=== PATIENT | male | born 1950 | race Caucasian/White ===

== ENCOUNTER → 2017-05-19 08:07 | Outpatient (CLI) | payer MEDICARE, OTHER, SELFPAY ==
--- NOTE | 2017-05-19 08:12 | US_ITS ---
STUDY: ABDOMINAL ULTRASOUND - RIGHT UPPER QUADRANT REASON FOR VISIT: Male, 66 years old. Elevated liver function tests. TECHNIQUE: Ultrasound evaluation of the right upper quadrant was performed with real-time and static motta-scale imaging. TECHNICAL QUALITY: Adequate. COMPARISON: None. FINDINGS: Liver: The liver measures 17.7 cm. There is normal echogenicity of the liver. The bile ducts are within normal limits. There is hepatic color flow. The direction of portal flow is hepatopetal. There is no demonstrated mass lesion. Gallbladder: The patient is status post cholecystectomy. Common Bile Duct (C.B.D.): The common bile duct measures 2.2 mm. Pancreas: Normal size of the head, body and tail of the pancreas. There is normal echogenicity of the pancreas. There is no demonstrated pancreatic mass or cyst. Right Kidney: Normal size of the right kidney. The right kidney measures 11.1 cm x 5.6 cm x 4.3 cm. Normal renal cortex. The right cortex measures 1.4 cm. There is no demonstrated renal mass or cyst. There is no right hydronephrosis. US/Abdomen Limited IMPRESSION: Normal right upper quadrant ultrasound examination. The patient is status post cholecystectomy. Electronically Signed: Bennett Walton MD at 9:49 EST Tel [phone], Service support ,
== END ==
PROVIDERS: Family Provider Family Medicine; PCP Family Medicine; Visit Provider Family Medicine
DX: R74.0 Nonspecific elevation of levels of transaminase and lactic acid dehydrogenase [LDH] (principal)
CPT/HCPCS: 76705

== ENCOUNTER → 2017-06-15 10:23 | Outpatient (CLI) | payer OTHER, MEDICARE, SELFPAY | PROVIDERS: Family Provider Family Medicine; PCP Family Medicine; Visit Provider Family Medicine | DX: J20.9 Acute bronchitis, unspecified (principal) ==

== ENCOUNTER → 2017-06-15 13:46 | Outpatient (CLI) | payer MEDICARE, OTHER, SELFPAY ==
--- NOTE | 2017-06-15 13:51 | RAD_ITS ---
STUDY: X-RAY CHEST REASON FOR EXAM: Male, 66 years old. Cough TECHNIQUE: Frontal and lateral views of the chest were obtained. COMPARISON: May 29, 2015 FINDINGS: The lungs are adequately aerated. There are no focal airspace opacities. There is no demonstrated pleural abnormality. A calcified granuloma is stable in the right middle lobe. The cardiac silhouette is normal in size. The mediastinum and hilar regions are unremarkable. Normal visualized pulmonary arteries. Normal visualized aortic arch and descending thoracic aorta. There are diffuse degenerative changes of the visualized spine. The visualized ribs, clavicles, and shoulders are unremarkable. Cholecystectomy clips are present. RAD/Chest PA and Lateral IMPRESSION: There is no evidence of focal consolidation or pleural effusion. Electronically Signed: Barbara Holden MD at 17:53 EST Tel Direct: [phone], Service support ,
== END ==
PROVIDERS: Family Provider Family Medicine; PCP Family Medicine; Visit Provider Family Medicine
DX: J20.9 Acute bronchitis, unspecified (principal)
CPT/HCPCS: 71046

== ENCOUNTER → 2017-06-24 11:16 | Outpatient (CLI) | payer MEDICARE, OTHER, SELFPAY ==
[2017-06-24 16:21] LABS: Ferritin 1153 ng/mL (26-388); Iron 81 ug/dL (65-175); Iron Binding Capacity,Total 250 ug/dL (250-450); PERCENT IRON SATURATION 32.4 % (15.0-55.0)
[2017-06-25 12:24] LABS: AST(SGOT) 22 U/L (15-37); Alanine Aminotransfer ALT/SGPT 47 U/L (16-61); Albumin, Serum 4.1 g/dL (3.2-5.0); Alkaline Phosphatase 108 U/L (45-117); Bilirubin, Direct 0.12 mg/dL (0.00-0.30); Globulin 3.4 g/dL (2.2-4.2); Protein, Total 7.5 g/dL (6.4-8.2)
== END ==
PROVIDERS: Family Provider Family Medicine; PCP Family Medicine; Visit Provider Family Medicine
DX: R79.89 Other specified abnormal findings of blood chemistry (principal); E83.19 Other disorders of iron metabolism
CPT/HCPCS: 36415; 80076; 82728; 83540; 83550; 86704; 86705; 86706; 86708; 86709; 86803; 87340

== ENCOUNTER → 2017-08-05 06:51 | Outpatient (CLI) | payer MEDICARE, OTHER, SELFPAY ==
[2017-08-05 08:11] LABS: AST(SGOT) 22 U/L (15-37); Alanine Aminotransfer ALT/SGPT 28 U/L (16-61); Alkaline Phosphatase 99 U/L (45-117); Cholesterol 239 mg/dL (200); Globulin 3.4 g/dL (2.2-4.2); High Density Lipoprotein 42 mg/dL; Protein, Total 7.4 g/dL (6.4-8.2); Triglycerides 127 mg/dL; Very Low Density Lipoprotein 25 mg/dL (5-40)
== END ==
PROVIDERS: Family Provider Family Medicine; PCP Family Medicine; Visit Provider Nurse Practitioner Family
DX: I25.10 Atherosclerotic heart disease of native coronary artery without angina pectoris (principal); E78.5 Hyperlipidemia, unspecified
CPT/HCPCS: 36415; 80061; 80076

== ENCOUNTER → 2018-04-21 07:47 | Outpatient (CLI) | payer MEDICARE, OTHER, SELFPAY ==
[2017-12-06 09:46] VITALS: BMI 27.8
[2018-04-21 08:58] LABS: AST(SGOT) 27 U/L (15-37); Alanine Aminotransfer ALT/SGPT 69 U/L (16-61); Albumin, Serum 3.9 g/dL (3.2-5.0); Alkaline Phosphatase 99 U/L (45-117); Bilirubin, Direct 0.13 mg/dL (0.00-0.30); Cholesterol 252 mg/dL (200); Globulin 3.3 g/dL (2.2-4.2); High Density Lipoprotein 41 mg/dL; Protein, Total 7.2 g/dL (6.4-8.2); Triglycerides 256 mg/dL; Very Low Density Lipoprotein 51 mg/dL (5-40)
== END ==
PROVIDERS: Family Provider Family Medicine; PCP Family Medicine; Referring Provider Nurse Practitioner Family; Visit Provider Nurse Practitioner Family
DX: E78.5 Hyperlipidemia, unspecified (principal); I25.10 Atherosclerotic heart disease of native coronary artery without angina pectoris
CPT/HCPCS: 36415; 80061; 80076

== ENCOUNTER → 2018-04-29 08:34 | Outpatient (CLI) | payer MEDICARE, OTHER, SELFPAY ==
[2018-04-29 08:40] LABS: Bacteria 0 SEEN /hpf (None Seen); Mucous, Urine 0 SEEN /hpf (<or=2+); Red Blood Cells-Urine 0 SEEN /hpf (0-5); Squamous Epithelial Cells - UA 0 SEEN /hpf (0-5); White Blood Cells 0 SEEN /hpf (0-5)
[2018-04-29 12:14] LABS: Color, Urine Straw (Yellow); Glucose, Dipstick Normal (Normal); Ketone-Dipstick Negative (Negative); Leukocyte Esterase-Dipstick Negative /ul (Negative); Nitrite-Dipstick Negative (Negative); Occult Blood-Urine Negative /ul (Negative); Protein-Dipstick Negative (Negative); Specific Gravity, Urine 1.015 (1.002-1.030); Urine Bilirubin Dipstick Negative (Negative); Urine Clarity Clear (Clear); Urine Urobilinogen Normal (Normal)
[2018-04-29 12:23] LABS: Absolute Lymphocyte Count 0.98 X10^3/ul (0.83-4.51); Absolute Neutrophil Count 2.5 X10^3/uL (2.0-7.7); Basophil# 0.01 X10^3/uL; Basophil% 0.3 % (0-1); Eosinophil# 0.18 X10^3/uL; Eosinophils% 4.5 % (0-5); Hematocrit 47.4 % (40-54); Hemoglobin 15.8 g/dl (13.0-16.5); Lymphocyte # 0.98 X10^3/ul (4.0); Lymphocyte % 24.5 % (19-41); Mean Corp Hgb Conc 33.3 g/gl (32-36); Mean Corpuscular Hgb 29.6 pg (27.0-32.0); Mean Corpuscular Volume 88.9 fL (80-94); Mean Platelet Vol. 11.4 fl (6.2-12.0); Monocyte# 0.32 X10^3/uL; Neutrophil # 2.48 X10^3/uL (2.7-7.7); Neutrophil % 61.9 % (47-70); Platelet Count 146 K/mm3 (150-450); RBC Distribution Width CV 13.1 % (11.6-14.6); RBC Distribution Width SD 42.4 fl (35.1-43.9); Red Blood Count 5.33 M/mm3 (4.6-6.2)
[2018-04-29 12:32] LABS: POSITIVE COUNT NO; POSITIVE DIFFERENTIAL NO; POSITIVE MORPHOLOGY NO
[2018-04-29 12:46] LABS: Anion Gap 8 (5-15); BUN 25 mg/dL (7-18); BUN/Creat Ratio 25.5 RATIO (10-20); Calcium,Total 8.6 mg/dL (8.5-10.1); Chloride 105 mmol/L (98-107); Creatinine, Serum 0.98 mg/dL (0.70-1.30); EST Glomerular Filtration Rate 81 mL/min (>60); Est Glom Filt Rate - Afr Amer 98 mL/min (>60); Glucose 92 mg/dL (74-106); Potassium 4.1 mmol/L (3.5-5.1); Sodium Level 139 mmol/L (136-145); T4 Free Direct 0.98 ng/dL (0.76-1.46); Thyroid Stim Hormone (TSH) 1.54 uIU/mL (0.358-3.74)
== END ==
PROVIDERS: Family Provider Family Medicine; PCP Family Medicine; Visit Provider Family Medicine
DX: R35.0 Frequency of micturition (principal); F41.9 Anxiety disorder, unspecified; E78.5 Hyperlipidemia, unspecified; R06.00 Dyspnea, unspecified
CPT/HCPCS: 36415; 80048; 81001; 84439; 84443; 85025; 87086

== ENCOUNTER 2018-05-20 16:47 | Emergency (ER) | payer MEDICARE, OTHER, SELFPAY ==
[2018-05-20 16:48] VITALS: BP 157/77; PULSE 79; RESP 16; TEMP 37.3; O2SAT 98; BMI 28.6
--- NOTE | 2018-05-20 17:16 | ED.VISSUMM ---
- ER Visit Summary Date of Service: 05/20/18 Chief Complaint: Right ankle injury History of Present Illness: The patient is a 67 M inversion injury right ankle 2 hours prior to arrival. No falls or head injuries. No paresthesias. Reports hobbled in here. History of upper extremity fractures in the past followed by Dr. Pete Hernández. Advil taken prior to arrival. No neck or back pain. No other complaints. Physical Examination: General: Alert and oriented ?3, no acute distress HEENT: Normocephalic, atraumatic. Moist mucosa membranes Neck: supple, nontender. Cardiovascular: Regular rate and rhythm, no murmurs Respiratory: Normal breath sounds, symmetric, no distress Abdomen: Soft, nontender, nondistended Extremities: Right lower extremity: Knee extensor intact with non-tenderness. There is swelling and tenderness lateral malleolus. No medial mild tenderness. No foot tenderness. Skin intact. Neurovascular intact. Neuro: no focal neurological deficits. Test Results: Right ankle x-ray: Dubose B distal fibular fracture Emergency Department Course and Treatment: Patient declined any pain medicines. X-ray obtained reviewed by myself concerns for Dubose B distal fibular fracture. He has no current medial mild tenderness or swelling. He was placed in a posterior splint with nonweightbearing status. He states he has crutches a walker and wheelchair at home from previous back surgery. I spoke with Dr. Ackerman covering for Dr. Hernández he will be follow-up as an outpatient. Discussed continue to ice and elevate. Treatment Plan: [] Disposition: Discharge Impression: 1. Closed right ankle fracture This note was generated with [employer] dictation software. It may contain incorrect words, spelling, and punctuation that were not noted in review of the chart prior to signing ED Disposition - Plan for ED Patient: Disposition: Home or Assisted Living Diagnosis: Closed right ankle fracture Instructions: ED Fx Ankle General Referrals: Lv Dos Santos MD [Primary Care Provider] - Pete Hernández MD [STAFF PHYSICIAN] - 3-5 Days Additional Instructions: Dubose B fracture right ankle. Nonweightbearing to the right lower extremity. Use your crutches or walker or wheelchair at home as needed. Continue to ice and elevate. Call Dr. Hernández for follow-up.
--- NOTE | 2018-05-20 17:35 | RAD_ITS ---
STUDY: X-RAY - RIGHT ANKLE REASON FOR EXAM: Male, 67 years old. Trauma TECHNIQUE: 3 view(s) of the ankle. COMPARISON: None. FINDINGS: There is a nondisplaced spiral fracture of the distal fibular metaphysis/lateral malleolus. The medial malleolus is intact. Normal tibiotalar articulation and ankle mortise. Normal visualized talus and calcaneus. The visualized subtalar, talonavicular, calcaneocuboid and tarsal articulations are normal. There is soft tissue swelling overlying the lateral malleolus. RAD/Ankle min 3 Views IMPRESSION: Nondisplaced spiral fracture of the distal fibular metaphysis/lateral malleolus. There is overlying soft tissue swelling. Electronically Signed: Jaden Mensah MD at 18:39 EST , Service support ,
[2018-05-20 18:35] VITALS: PULSE 80; RESP 16
== END 2018-05-20 18:36 | disposition home or self-care (01) ==
PROVIDERS: Emergency Provider Emergency Medicine; Family Provider Family Medicine; PCP Family Medicine
DX: S82.64XA Nondisplaced fracture of lateral malleolus of right fibula, initial encounter for closed fracture (principal); X50.1XXA Overexertion from prolonged static or awkward postures, initial encounter; Y93.9 Activity, unspecified; Y92.9 Unspecified place or not applicable; I25.10 Atherosclerotic heart disease of native coronary artery without angina pectoris; E78.00 Pure hypercholesterolemia, unspecified; N40.0 Benign prostatic hyperplasia without lower urinary tract symptoms; Z79.82 Long term (current) use of aspirin; Z79.899 Other long term (current) drug therapy
CPT/HCPCS: 29515; 73610; 99282

== ENCOUNTER → 2018-08-15 | Outpatient (CLI) | payer MEDICARE, OTHER, SELFPAY ==
[2018-08-15 08:23] VITALS: BMI 29.4
--- NOTE | 2018-08-15 09:09 | RAD_ITS ---
STUDY: X-RAY CHEST REASON FOR EXAM: Male, 67 years old. One-week history of cough. TECHNIQUE: PA and lateral views of the chest. COMPARISON: Comparison is made with prior study dated February 12, 2018. FINDINGS: The lungs are clear and expanded. Calcified right hilar lymph nodes and right lower lobe granuloma. There is no demonstrated pleural abnormality. Normal size heart. Normal mediastinum and ilda. Normal visualized pulmonary arteries. Normal visualized aortic arch and descending thoracic aorta. There are diffuse degenerative changes of the visualized thoracic spine. Normal visualized ribs, clavicles, and shoulders. There is no demonstrated abnormality of the visualized soft tissue structures of the upper abdomen. RAD/Chest PA and Lateral IMPRESSION: Normal x-ray examination of the chest. Electronically Signed: Bennett Walton, at 9:39 EDT , Service support ,
== END | disposition home or self-care (01) ==
PROVIDERS: Family Provider Family Medicine; PCP Family Medicine; Referring Provider Physician Assistant; Visit Provider Physician Assistant
DX: R05 Cough (principal)
CPT/HCPCS: 71046

== ENCOUNTER 2018-09-13 08:30 | Outpatient (RCR) | payer MEDICARE, OTHER, SELFPAY ==
[2018-06-15 10:26] VITALS: BMI 29.4
--- NOTE | 2018-07-08 14:02 | HP.PTEVAL ---
Patient's Visit Information DAVID WILLINGHAM is a 67 year old M referred to Physical Therapy by Nithin Dockery MD with a diagnosis of R fibular fracture. Date of Evaluation: 07/08/18 Physical Therapist: Juan Samaniego PT, ATC - Visit Plan Frequency: 3x /Week Duration: 4-6 Weeks Plan: R ankle stretching/streghthening, balance and proprio, PROM/mobs, bike, and HEP - Subjective Findings: DOI: 05/20/18. Pt reports he slipped on ice and fractured his R fibula. Pt reports the fracture was bad enough that he was scheduled to have surgery at that time, but he was told if he could remain NWB'ing he could avooid the surgery. Pt notes he has now been in a boot and NWBing for 7 weeks. Pt is now able to WBAT. No tingling or numbness in R LE. Pt reports no sleep difficulty secondary to pain. Pt reports sig swelling if he allows his leg to hang downward. 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 1/10 at rest, 6/10 at worst - Pain R ankle Pain Intensity (Out of 10): 1 Pain Intensity Range: 6 - Objective Neuro: B LE sensation is WNL to light touch. ROM: L ankle DF= 0, PF= 70, Inv= 45, ever= 20; R ankle DF= 0, PF= 50, Inv and ever= 0. Girth at joint line: R ankle29 cm, L ankle 28 cm. MMT: R ankle 3/5 throughout. L ankle 5/5 - Goals Goal 1:: Decrease R ankle pain x 50% to aid with weightbearing tolerance Goal Time Frame: 4-6 Weeks Goal 2:: Increase R ankle strength x 1 grade to aid with RTW without limitation Goal Time Frame: 4-6 Weeks Goal 3:: Increase R ankle DF ROM x 5-10 degrees to aid with restoring a more normalized gait pattern Goal Time Frame: 4-6 Weeks Goal 4:: I with HEP Goal Time Frame: 4-6 Weeks - Rehabilitation Potential Physical Therapy Diagnosis: Pt has R ankle pain, weakness, and limited ROM secondary to R fibular fx Rehabilitation Potential: Good - Anticipated Interventions Patient/Client Instruction: Educate patient on: Condition, Plan of Care For the Purpose of:: To improve self management Therapeutic Exercise to Include: Strength training, Endurance training, Balance training, Flexibilty training, Gait and locomotor training, Passive ROM, Active ROM For the Purpose of:: To decrease pain, To increase ROM, To improve muscle performance and motor function Cryotherapy (ice pack, ice massage): Yes For the Purpose of:: To decrease pain Thank you for the opportunity to evaluate your patient. For Medicare and Medicare HMO plans, please review the plan of care and approve it. It will need to be FAXED BACK to us at [phone] for Medicare purposes. For Medicare only, by signing this I certify the plan of care. Please let me know if there are questions or concerns regarding this plan of care. Physician Signature: Date:
--- NOTE | 2018-08-05 09:37 | HP.PTREVAL ---
Nithin Dockery MD, It has been my pleasure to treat DAVID WILLINGHAM over the last 12 visits for R fibular fracture. Please see the progress note below for an update on the physical therapy plan of care! Subjective: Pt. reports 'I am getting better, but it is a little slow. I am about 40% better. Pt. reports continued swelling and difficulty with driving. 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 He is also having difficulty with driving due to bracing. 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 ROM: EVR- 16deg, INV 18deg, DF 10deg, PF 48deg. MMT: PF 5/5, DF 5-/5; INV 4/5, EVR 4+/5. KNee- 5/5 throughout. SLS- Pt. is able to stand on one leg for 21sec, but has a lot lateral translation of his ankle . Pt. reports increased pain in this positionas well. GAIT: Pt. has decreased tempo and antalgic pattern druing R stance phase. STAIRS: PT. is able to complete with reciprocal pattern, but ahd increased pain with controllled eccentric lowering and decreased DF during R stance causing him to off load early with this motion. Plan Plan: POC extended x3 per week for 3 weeks until patient sees physician. Cont. to focus on INV/EVR strength, SLS balance (progressing to foam), gait/balance without brace. Wean from brace as tolerated. Goals Goal 1:: Decrease R ankle pain x 50% to aid with weightbearing tolerance Goal Time Frame: 4-6 Weeks Goal Progress: Progressing Goal 2:: Increase R ankle strength x 1 grade to aid with RTW without limitation Goal Time Frame: 4-6 Weeks Goal Progress: Progressing Goal 3:: Increase R ankle DF ROM x 5-10 degrees to aid with restoring a more normalized gait pattern Goal Time Frame: 4-6 Weeks Goal Progress: Progressing Goal 4:: I with HEP Goal Time Frame: 4-6 Weeks Anticipated Interventions Patient/Client Instruction: Educate patient on: Condition, Plan of Care For the Purpose of:: To improve self management Therapeutic Exercise to Include: Strength training, Endurance training, Balance training, Flexibilty training, Gait and locomotor training, Passive ROM, Active ROM For the Purpose of:: To decrease pain, To increase ROM, To improve muscle performance and motor function Cryotherapy (ice pack, ice massage): Yes For the Purpose of:: To decrease pain Please do not hesitate to contact me at [phone] by phone or if you have questions or concerns regarding this new plan of care! Sincerely, MARIANN CollierT
--- NOTE | 2018-09-13 09:07 | HP.PTREVAL ---
Nithin Dockery MD, It has been my pleasure to treat DAVID WILLINGHAM over the last 20 visits for R fibular fracture. Please see the progress note below for an update on the physical therapy plan of care! Subjective: Pt reports he is in a lot of pain this date Objective/Function: R ankle pain /10. R ankle ROM: DF= 11, PF= 62, Inv=39, ever= 25. R ankle MMT; PF and DF= 5/5, Inv and ever= 4/5. Pt is progressing well towards Rx goals but would benefit from further strengthening. Plan Plan: cont pending visit in one week. Goals Goal 1:: Decrease R ankle pain x 50% to aid with weightbearing tolerance Goal Time Frame: 4-6 Weeks Goal Progress: Progressing Goal 2:: Increase R ankle strength x 1 grade to aid with RTW without limitation Goal Time Frame: 4-6 Weeks Goal Progress: Progressing Goal 3:: Increase R ankle DF ROM x 5-10 degrees to aid with restoring a more normalized gait pattern Goal Time Frame: 4-6 Weeks Goal Progress: Progressing Goal 4:: I with HEP Goal Time Frame: 4-6 Weeks Anticipated Interventions Patient/Client Instruction: Educate patient on: Condition, Plan of Care For the Purpose of:: To improve self management Therapeutic Exercise to Include: Strength training, Endurance training, Balance training, Flexibilty training, Gait and locomotor training, Passive ROM, Active ROM For the Purpose of:: To decrease pain, To increase ROM, To improve muscle performance and motor function Cryotherapy (ice pack, ice massage): Yes For the Purpose of:: To decrease pain Please do not hesitate to contact me at [phone] by phone or if you have questions or concerns regarding this new plan of care! Sincerely, Juan Samaniego, PT, ATC
--- NOTE | 2018-11-03 11:52 | HP.PT.NRP ---
HP - Discharge Summary (1) - Patient Information DAVID WILLINGHAM was seen in my office for initial evaluation on 07/08/18. The following Plan of Care was established for this patient: Initial Frequency: 3x /Week Initial Duration: 4-6 Weeks - Anticipated Interventions Patient/Client Instruction: Educate patient on: Condition, Plan of Care For the Purpose of:: To improve self management Therapeutic Exercise to Include: Strength training, Endurance training, Balance training, Flexibilty training, Gait and locomotor training, Passive ROM, Active ROM For the Purpose of:: To decrease pain, To increase ROM, To improve muscle performance and motor function Cryotherapy (ice pack, ice massage): Yes For the Purpose of:: To decrease pain This patient was last seen in our office . Pertinent comments regarding their Physical therapy will appear below: Pt phoned the clinic on the date of 09/20/18 to report he is all healed and needs no further PT. Discharge. At this point I will be discontinuing this patient from physical therapy. I would be happy to see this patient again in the future if found appropriate by the physician. Thank you! Juan Samaniego, PT, ATC
== END 2018-09-13 19:00 | disposition home or self-care (01) ==
LOC: PT 08:30
PROVIDERS: Family Provider Family Medicine; PCP Family Medicine; Referring Provider Orthopaedic Surgery; Visit Provider Orthopaedic Surgery
DX: S82.831D Other fracture of upper and lower end of right fibula, subsequent encounter for closed fracture with routine healing (principal)
CPT/HCPCS: 97110; 97161; 97530

== ENCOUNTER → 2019-01-30 10:11 | Outpatient (CLI) | payer MEDICARE, OTHER, SELFPAY ==
[2019-01-30 09:28] VITALS: BMI 28.1
[2019-01-30 11:43] LABS: AST(SGOT) 31 U/L (15-37); Alanine Aminotransfer ALT/SGPT 44 U/L (16-61); Alkaline Phosphatase 103 U/L (45-117); Bilirubin, Direct 0.11 mg/dL (0.00-0.30); Cholesterol 261 mg/dL (200); Globulin 3.2 g/dL (2.2-4.2); High Density Lipoprotein 44 mg/dL; Protein, Total 7.2 g/dL (6.4-8.2); Triglycerides 245 mg/dL; Very Low Density Lipoprotein 49 mg/dL (5-40)
== END ==
PROVIDERS: Family Provider Family Medicine; PCP Family Medicine; Referring Provider Internal Medicine Cardiovascular Disease; Visit Provider Internal Medicine Cardiovascular Disease
DX: E78.00 Pure hypercholesterolemia, unspecified (principal)
CPT/HCPCS: 36415; 80061; 80076

== ENCOUNTER → 2019-03-14 07:14 | Outpatient (CLI) | payer MEDICARE, OTHER, SELFPAY ==
[2019-01-30 09:28] VITALS: BMI 28.1
[2019-03-14 09:12] LABS: AST(SGOT) 31 U/L (15-37); Alanine Aminotransfer ALT/SGPT 60 U/L (16-61); Albumin, Serum 4.1 g/dL (3.2-5.0); Alkaline Phosphatase 104 U/L (45-117); Cholesterol 163 mg/dL (200); Globulin 3.2 g/dL (2.2-4.2); High Density Lipoprotein 47 mg/dL; Protein, Total 7.3 g/dL (6.4-8.2); Triglycerides 142 mg/dL; Very Low Density Lipoprotein 28 mg/dL (5-40)
== END ==
PROVIDERS: Family Provider Family Medicine; PCP Family Medicine; Referring Provider Internal Medicine Cardiovascular Disease; Visit Provider Internal Medicine Cardiovascular Disease
DX: E78.00 Pure hypercholesterolemia, unspecified (principal)
CPT/HCPCS: 36415; 80061; 80076

== ENCOUNTER → 2019-11-07 06:44 | Outpatient (CLI) | payer MEDICARE, OTHER, SELFPAY ==
[2019-08-02 09:36] VITALS: BMI 28.7
--- NOTE | 2019-11-07 06:47 | ECHOD_ITS ---
Reason For Study: SOB Procedure This was a 2D Doppler, Color Flow transthoracic echocardiogram. Exam performed in department. Left Ventricle Normal LV size. Left ventricular systolic function is normal. The estimated ejection fraction is 60 %. Diastolic function is indeterminate. No regional wall motion abnormalities noted. Right Ventricle Normal RV size. Normal systolic function. Atria The left atrium is mildly enlarged. Normal right atrium. No doppler evidence for ASD. Mitral Valve There is no mitral annular calcification. Mild diffuse mitral valve thickening. Mild (1+) mitral valve insufficiency. Tricuspid Valve Normal tricuspid valve. Trivial tricuspid valve insufficiency. Aortic Valve Trisinus/trileaflet aortic valve. Mild diffuse aortic valve thickening. Pulmonic Valve The pulmonic valve is not well visualized. Trivial pulmonic valve insufficiency. Great Vessels Normal sized aortic root. Pericardium/Pleural No pericardial effusion. MMode/2D Measurements & Calculations LVIDd: 5.4 cm IVSd: 0.94 cm Ao root diam: 3.4 cm LVIDs: 3.6 cm LVPWd: 0.91 cm RVDd: 3.6 cm FS: 34.4 % LAV(MOD-bp): 61.5 ml LA A4 area: 23.6 cm2 LA dimension(2D): 4.1 cm LAV(MOD-bp) Indexed: 29.5 ml/m2 LAV(MOD-sp2): 44.7 ml LAV(MOD-sp4): 83.5 ml RA A4 area: 17.0 cm2 Doppler Measurements & Calculations MV E max chao: 66.4 cm/sec Lat Peak E' Chao: 7.3 cm/sec Med Peak E' Chao: 6.8 cm/sec MV A max chao: 76.6 cm/sec E/E' lat: 9.1 E/E' med: 9.7 MV E/A: 0.87 Ao V2 max: 111.6 cm/sec LV V1 max: 97.9 cm/sec PA V2 max: 104.8 cm/sec Ao max P.0 mmHg LV V1 max P.8 mmHg Interpretation Summary Left ventricular systolic function is normal. The estimated ejection fraction is 60 %. The left atrium is mildly enlarged. Mild diffuse mitral valve thickening. Mild (1+) mitral valve insufficiency. Trivial tricuspid valve insufficiency. Mild diffuse aortic valve thickening. Trivial pulmonic valve insufficiency. Diastolic function is indeterminate. Ordering Physician: Tunde Singh/Shyam Ayoub Referring Physician: Lv Dos Santos Performed By: Gila Carlisle RDCS
--- NOTE | 2019-11-07 09:05 | STRESSREP ---
Stress Test Report Date: 11-08-2019 Procedure: Exercise tolerance test/imaging study Indications: Shortness of breath/dyspnea on exertion; CAD; PCI Consent: Per the patient Procedure: The patient exercised on a Ady protocol for 8 minutes completing Stage II and 2 minutes of Stage III achieving a peak heart rate of 148 bpm (98 % predicted maximal heart rate) with a peak blood pressure 174/72 mmHg and a peak MET capacity of 9 METs. The baseline ECG demonstrated sinus bradycardia. The peak exercise ECG demonstrated with [id number] nonspecific ST segment variability. There were occasional PVCs pretest, during exercise, and recovery. The functional capacity was considered good. There was no complaint of chest discomfort during exercise or recovery. The examination was discontinued secondary to dyspnea. Impression: 1. Technically adequate (percent predicted maximal heart rate greater than 85%) exercise tolerance test 2. Peak exercise ECG with [id number] nonspecific ST segment variability 3. There were occasional PVCs pretest, during exercise, and recovery 4. Nuclear images pending Myocardial perfusion imaging study: Technique: The patient was injected with 11.9 mCi of technetium 99m Cardiolite and subsequently rest SPECT Cardiolite nuclear imaging was obtained in the horizontal long, vertical long, and short axis views. The patient exercised on a Ady protocol for 8 minutes completing Stage II and 2 minutes of Stage III achieving a peak heart rate of 148 bpm (98 % predicted maximal heart rate) with a peak blood pressure 174/72 mmHg and a peak MET capacity of 9 METs. The patient was injected with 36.0 mCi of technetium 99m Cardiolite and subsequently stress SPECT Cardiolite nuclear imaging was obtained in the horizontal long, vertical long, and short axis views. A gated Cardiolite study at peak stress was obtained. Interpretation: Rest and stress SPECT Cardiolite nuclear imaging status post realignment, normalization, and attenuation correction, demonstrates the appearance of subtle diminished tracer uptake in portions of the mid anterior segments following stress. There is end systolic thickening and brightening. The gated Cardiolite study demonstrates myocardial thickening and inward wall motion. The reported LVEF is 57 %. Impression: 1. Rest and stress SPECT Cardiolite nuclear imaging demonstrate myocardial perfusion changes concerning for an area of stress-induced myocardial ischemia in portions of the mid anterior segments, however, an element of shifting soft tissue attenuation/artifact cannot necessarily be excluded. 2. The gated Cardiolite study reports an LVEF of 57 8%. This note was generated with [employer] software. It may contain incorrect words, spelling, and punctuation that were not noted in checking the note before signing.
== END ==
PROVIDERS: PCP Family Medicine; Referring Provider Nurse Practitioner Family; Visit Provider Nurse Practitioner Family
DX: I25.10 Atherosclerotic heart disease of native coronary artery without angina pectoris (principal); I10 Essential (primary) hypertension; E78.00 Pure hypercholesterolemia, unspecified; R06.00 Dyspnea, unspecified; R06.02 Shortness of breath; Z95.5 Presence of coronary angioplasty implant and graft
CPT/HCPCS: 78452; 93017; 93306; A9500; A4216

== ENCOUNTER 2019-11-24 07:48 | Day surgery (SDC) | payer MEDICARE, OTHER, SELFPAY ==
[2019-11-07 16:29] VITALS: BMI 28.1
--- NOTE | 2019-11-14 07:42 | RAD_ITS ---
STUDY: X-RAY CHEST REASON FOR EXAM: Male, 69 years old. Preheart catheterization. Abnormal stress test. Occasional shortness of breath. TECHNIQUE: PA and lateral views of the chest. COMPARISON: 08/15/2018. FINDINGS: The lungs are clear and expanded. There is no demonstrated pleural abnormality. Normal size heart. Normal mediastinum and ilda. Normal visualized pulmonary arteries. Normal visualized aortic arch and descending thoracic aorta. There are diffuse degenerative changes of the visualized thoracic spine. Suture anchors are again seen in the right humeral head. There is no demonstrated abnormality of the visualized soft tissue structures of the upper abdomen. RAD/Chest PA and Lateral IMPRESSION: No acute cardiopulmonary disease or interval change. Electronically Signed: Stanton Rowe DO at 16:49 EDT Tel [phone], Service support ,
[2019-11-14 09:09] LABS: Absolute Lymphocyte Count 0.96 X10^3/uL (0.83-4.51); Absolute Neutrophil Count 3.1 X10^3/uL (2.0-7.7); Basophil# 0.01 X10^3/uL; Basophil% 0.2 % (0-1); Eosinophil# 0.24 X10^3/uL; Hematocrit 45.9 % (40-54); Hemoglobin 14.9 g/dL (13.0-16.5); Lymphocyte # 0.96 X10^3/ul (4.0); Mean Corp Hgb Conc 32.5 g/dL (32-36); Mean Corpuscular Hgb 29.9 pg (27.0-32.0); Mean Platelet Vol. 11.4 fl (6.2-12.0); Monocyte# 0.43 X10^3/uL; Monocyte% 8.9 % (0-10); NRBC Flagged by Analyzer 0 % (0-5); Neutrophil # 3.13 X10^3/uL (2.7-7.7); Neutrophil % 65.1 % (47-70); Platelet Count 127 K/mm3 (150-450); RBC Distribution Width CV 12.3 % (11.6-14.6); RBC Distribution Width SD 41.3 fl (35.1-43.9); Red Blood Count 4.99 M/mm3 (4.6-6.2); White Blood Count 4.8 K/mm3 (4.4-11.0)
[2019-11-14 09:32] LABS: AST(SGOT) 24 U/L (15-37); Alanine Aminotransfer ALT/SGPT 37 U/L (16-61); Alkaline Phosphatase 108 U/L (45-117); Bilirubin, Direct 0.17 mg/dL (0.00-0.30); Cholesterol 140 mg/dL (200); Globulin 3.4 g/dL (2.2-4.2); High Density Lipoprotein 44 mg/dL; Protein, Total 7.4 g/dL (6.4-8.2); Triglycerides 125 mg/dL; Very Low Density Lipoprotein 25 mg/dL (5-40)
[2019-11-14 09:37] LABS: Anion Gap 5 (5-15); BUN 19 mg/dL (7-18); BUN/Creat Ratio 19.5 RATIO (10-20); Calcium,Total 8.6 mg/dL (8.5-10.1); Chloride 108 mmol/L (98-107); Creatinine, Serum 0.97 mg/dL (0.70-1.30); EST Glomerular Filtration Rate 81 mL/min (>60); Est Glom Filt Rate - Afr Amer 98 mL/min (>60); Glucose 98 mg/dL (74-106); Potassium 3.8 mmol/L (3.5-5.1); Sodium Level 139 mmol/L (136-145)
[2019-11-23 07:53] VITALS: BMI 29.0
--- NOTE | 2019-11-24 09:08 | HP.PCM_ITS ---
Problem List (1) Abnormal cardiovascular stress test Status: Acute (2) Atherosclerotic heart disease of hoh coronary artery without angina pectoris Status: Chronic Qualifiers: Comment: S/P PCI to RCA in May 2003; (3) Presence of stent in coronary artery Status: Chronic Comment: PTCA of the RCA with placement of a intracoronary stent 06/13/2003. (4) Pure hypercholesterolemia Status: Chronic (5) Essential hypertension Status: Chronic History and Physical Date of Admission: 11/24/19 [facility] [address] [place] [address] OFFICE VISIT Date of Service: 11/07/19 MR#: [id number] Acct: [id number] Name: DAVID WILLINGHAM Rep #: [id number] : 1950 Provider: NICHOLAS Singh Age/Sex: 69/M Location: [facility] Status: Signed HPI HPI History of Present Illness Details: DAVID WILLINGHAM, is a 69-year-old white male who presents to the office today for a cardiovascular outpatient follow-up of his history of coronary artery disease status post remote PCI in May 2003, sinus bradycardia, and hyperlipidemia. Patient was evaluated virtually/over the phone on 08/02/2019. During conversation, he noted profound shortness of breath with activity. He underwent an echocardiogram on 11/07/2019 that showed ejection of 60%, diastolic function is indeterminate, no regional wall motion abnormalities, and mitral valve insufficiency. He also underwent an stress test on 11/07/2019 that showed peak ECG with [id number] nonspecific ST segment variability and nuclear images demonstrated myocardial fusion changes concerning for an area of stress-induced micro-ischemia in portions of the mid anterior segments, however, an element of shifting soft tissue attenuation/artifact cannot necessarily exclude. It was recommended he proceed with heart catheterization to evaluate further. He has been followering with Dr. Macedo for asthma concerns. Prior to stenting in 2003 he noted dizziness. He notes dizziness daily for months. This was noted when bending down or standing up quickly or getting in and out of a tractor. He underwent cataract sugery in August and thus has noticed change in vision in which he is looking through a water glass. He since has noted seeing black spots. He is following with eye surgeon for such issues. Pt denies chest, arm, jaw, or neck discomfort. His exercise tolerance is reduced. Pt denies symptoms of palpitations, lightheadedness, near syncopal or syncopal episodes. Pt denies edema or claudication issues. Pt. denies orthopnea, PND, blood in urine, blood in stool, myalgia, or unexplainable fatigue. He states restless leg when he sleeps. This seems more bothersome. Intake Vital Signs 11/07/19 Height 5 ft 10 in 11/07/19 Weight: 202 lb 11/07/19 BP 149/76 H 11/07/19 Blood Pressure Location Lt brachial 11/07/19 Position Sitting 11/07/19 Respiration 14 11/07/19 Pulse 51 L 11/07/19 Pulse Source Monitor 11/07/19 Pulse Oximetry (%) 97 11/07/19 Oxygen Delivery Method room air Intake Visit Reasons: 3 M FU/LM Allergies Penicillins Allergy (Severe, Verified 08/02/19 09:58) Unknown iodine Allergy (Verified 01/30/19 09:29) Rash Sulfa (Sulfonamide Antibiotics) Allergy (Verified 08/02/19 09:58) Unknown TASHI Inhibitors Adverse Reaction (Verified 01/30/19 09:29) intolerance, nonproductive cough. [facility] Social History (Updated 11/07/19 @ 16:29 by Tunde Singh NP-C) Smoking Status: Never smoker alcohol intake: current ROS Const Const: Positive for fatigue, weight gain and other (Decreased exercise, restless leg); negative for weakness, body ache, fever(s) or chills Eyes Eyes: Positive for change in vision ENT ENT: Positive for dizziness Cardio Chest Pain: No Palpitations: No Edema: None Muscle aches with walking: None Resp Respiratory: Positive for SOB with activity; negative for SOB at rest, SOB orthopnea\SOB lying down or paroxysmal nocturnal dyspnea GI GI: Negative nausea, vomiting blood/hematemesis, bright, red blood in stools or black,tarry stools : Negative for hematuria or frequent nighttime urination/ nocturia Musc Musc: Negative for muscle aches/ myalgia Skin Skin: Negative non-healing lesions or rash Neuro Neuro: Positive for dizziness; negative for lightheadedness, near syncope, syncope, orthostatic symptoms or weakness Endo Endo: Positive for fatigue Allergy Allergy/Immunology: Negative for rash Assessment & Plan 1. Atherosclerosis of hoh coronary artery of hoh heart without angina pectoris I25.10 S/P PCI to RCA in May 2003; Plan Patient stress test from 11/07/2019 for considered to be abnormal. This showed area concerning for stress-induced myocardial ischemia in portion of the mid anterior segments. Thus, it is recommended he undergo heart catheterization to evaluate coronary artery disease component. Due to current eye issues and work-up with eye surgeon, it was advised that input from eye surgeon be obtained before heart catheterization and potential commitment to antiplatelet therapy, which may complicate any future eye surgeries. He has upcoming appointment on 11/09/2019 with eye surgeon. They will be contacted soon after to discern any specific recommendations. Thus, we will hold off on heart catheterization until input is obtained. If he proceeds with heart catheterization he will need to begin Plavix and iodine allergy medication. These prescriptions have not been sent and will need to be sent to local pharmacy prior to heart catheterization. Patient will also need to obtain a laboratory testing prior to heart catheterization. Orders Orders: Basic Metabolic Profile (BMP) Today 2. Presence of stent in coronary artery Z95.5 PTCA of the RCA with placement of a intracoronary stent 06/13/2003. Plan He will continue current medical therapy. Orders Orders: Left Heart Cath/COR/LV Percut Today Basic Metabolic Profile (BMP) Today 3. Shortness of breath R06.02 Plan The exact etiology of his shortness of breath is unclear. However, with his abnormal stress test, coronary artery disease needs to be evaluated further as a potential source. This will be addressed with heart catheterization hopefully in the near future. Orders Orders: Left Heart Cath/COR/LV Percut Today Basic Metabolic Profile (BMP) Today 4. Essential (primary) hypertension I10 Plan His blood pressure slightly elevated today in office. At this time this is thought to be related to emotional stress and presenting to the office. He was asked to continue to monitor his blood pressure closely and that blood pressure medication may need to be considered based on readings. He does have allergy listed to lisinopril and thus ARB is a potential option. Orders Orders: Basic Metabolic Profile (BMP) Today 5. Pure hypercholesterolemia E78.00 Plan He will continue current statin medication. Orders Orders: Basic Metabolic Profile (BMP) Today CBC W/Diff, Automated Today 6. Bradycardia R00.1 Plan Because of this, he is currently not on beta-nereyda therapy. Orders Orders: Basic Metabolic Profile (BMP) Today Prothrombin Time w/INR Today Plan Detail Other Orders Orders: Left Heart Cath/COR/LV Percut Today R94.39 Other Medications New: prednisone Three tablets at noon the day before heart cath. Three tablets at bedtime the day before heart cath. Three tablets the morning on your heart cath. 20 mg PO DAILY 9 tabs 0RF diphenhydramine HCl (Benadryl Allergy) Two tablets at bedtime the day before cath. Two tablets the morning of cath. 25 mg PO QHS 4 tabs 0RF famotidine (Pepcid) One tablet at bedtime day before cath. One tablet the morning of cath. 20 mg PO DAILY 2 tabs 0RF clopidogrel (Plavix) 75 mg PO DAILY 30 tabs 11RF Additional Comments Thank you for allowing us to participate in the patients plan of care, if you have any questions please do not hesitate to call. This note was generated using a voice recognition system and there may be incorrect words, spelling or punctuation that were not noted when reviewing the office note prior to saving. Coding Level of Care Code Off vis,est,level 3 Diagnoses Atherosclerosis of hoh coronary artery of hoh heart without angina pectoris I25.10 ??[place] vs. transplanted heart: hoh heart Presence of stent in coronary artery Z95.5 Shortness of breath R06.02 Essential (primary) hypertension I10 Pure hypercholesterolemia E78.00 Bradycardia R00.1 Coding Level of Care Code Off vis,est,level 3 Diagnoses Atherosclerosis of hoh coronary artery of hoh heart without angina pectoris I25.10 ??[place] vs. transplanted heart: hoh heart Presence of stent in coronary artery Z95.5 Shortness of breath R06.02 Essential (primary) hypertension I10 Pure hypercholesterolemia E78.00 Bradycardia R00.1 Supplemental Info Supplemental Information Echocardiogram from 11/07/2019: Interpretation Summary Left ventricular systolic function is normal. The estimated ejection fraction is 60 %. The left atrium is mildly enlarged. Mild diffuse mitral valve thickening. Mild (1+) mitral valve insufficiency. Trivial tricuspid valve insufficiency. Mild diffuse aortic valve thickening. Trivial pulmonic valve insufficiency. Diastolic function is indeterminate. Stress Test Report Date: 11-08-2019 Procedure: Exercise tolerance test/imaging study Indications: Shortness of breath/dyspnea on exertion; CAD; PCI Consent: Per the patient Procedure: The patient exercised on a Ady protocol for 8 minutes completing Stage II and 2 minutes of Stage III achieving a peak heart rate of 148 bpm (98 % predicted maximal heart rate) with a peak blood pressure 174/72 mmHg and a peak MET capacity of 9 METs. The baseline ECG demonstrated sinus bradycardia. The peak exercise ECG demonstrated with ncif-rs-ghth nonspecific ST segment variability. There were occasional PVCs pretest, during exercise, and recovery. The functional capacity was considered good. There was no complaint of chest discomfort during exercise or recovery. The examination was discontinued secondary to dyspnea. Impression: 1. Technically adequate (percent predicted maximal heart rate greater than 85%) exercise tolerance test 2. Peak exercise ECG with [id number] nonspecific ST segment variability 3. There were occasional PVCs pretest, during exercise, and recovery 4. Nuclear images pending Myocardial perfusion imaging study: Technique: The patient was injected with 11.9 mCi of technetium 99m Cardiolite and subsequently rest SPECT Cardiolite nuclear imaging was obtained in the horizontal long, vertical long, and short axis views. The patient exercised on a Ady protocol for 8 minutes completing Stage II and 2 minutes of Stage III achieving a peak heart rate of 148 bpm (98 % predicted maximal heart rate) with a peak blood pressure 174/72 mmHg and a peak MET capacity of 9 METs. The patient was injected with 36.0 mCi of technetium 99m Cardiolite and subsequently stress SPECT Cardiolite nuclear imaging was obtained in the horizontal long, vertical long, and short axis views. A gated Cardiolite study at peak stress was obtained. Interpretation: Rest and stress SPECT Cardiolite nuclear imaging status post realignment, normalization, and attenuation correction, demonstrates the appearance of subtle diminished tracer uptake in portions of the mid anterior segments following stress. There is end systolic thickening and brightening. The gated Cardiolite study demonstrates myocardial thickening and inward wall motion. The reported LVEF is 57 %. Impression: 1. Rest and stress SPECT Cardiolite nuclear imaging demonstrate myocardial perfusion changes concerning for an area of stress-induced myocardial ischemia in portions of the mid anterior segments, however, an element of shifting soft tissue attenuation/artifact cannot necessarily be excluded. 2. The gated Cardiolite study reports an LVEF of 57 8%. Labs LDL Cholesterol 88 mg/dL (0-130) 03/14/19 HDL Cholesterol 47 mg/dL (40-) 03/14/19 Triglycerides 142 mg/dL (-199) 03/14/19 VLDL Cholesterol 28 mg/dL (5-40) 03/14/19 Diagnostics Echocardiogram 11/07/19 Stress Test Nuclear Medicine 11/07/19 Stress Test 11/07/19 Abdomen Ultrasound 05/19/17 Chest X-Ray 08/15/18 11/07/19 1810 <Electronically signed by Tunde Singh N PCarlos> Date _ Tunde Singh DELI SLICER-C Cosigner Signature: Date (if applicable) CC: Dr. Lv Dos Santos MD ~ I have re-examined the patient. There are no clinical changes since date of exam. Procedure Criteria Procedure Type: Elective COVID Risk Discussion: The surgeon/proceduralist and patient have discussed in detail the risk of exposure to and/or potential harm posed by the COVID-19 virus with having a surgery/procedure at this time versus the risk of delaying the surgery/procedure. It is not possible to know either the risk of delaying the surgery or procedure or chance of getting an infection with perfect accuracy, but a joint decision was made between the patient and the surgeon/proceduralist to proceed at this time with the scheduled surgery/procedure as indicated on the consent form.
--- NOTE | 2019-11-24 10:34 | CL.D_ITS ---
Patient Name: DAVID WILLINGHAM Study Date: 11/24/2019 Performing: Shyam Ayoub MD Ht: 70.07 inches 178 cm : 1950 Wt: 202.83 lbs 92 kg Age: 69 Gender: male BSA: 2.1 PROCEDURE(S) PERFORMED HI59-XGV/COR/LV CLINICAL PROFILE AND INDICATIONS Indications: Suspected CAD Heart Failure: None Stress/Imaging Date: 11/07/2019Stress Test with SPECT MPI: Positive Angina Classification Anginal Classification w/in 2 Weeks: Anginal Equivalent Dyspnea CAD Presentations: Other: dyspnea on exertion CONCLUSIONS Elevated Left Ventricular End Diastolic Pressure Normal LV size, wall motion,and systolic function LVEF: by LV gram 65 % [place] Multivessel CAD RECOMMENDATIONS Medical therapy DESCRIPTION OF PROCEDURE The patient arrived to the procedure lab. The risks and benefits of the procedure as well as a full d escription of our services here and current unavailability of surgical backup were fully explained to the patient and/or their significant other prior to the catheterization. The Timeout was completed, verifying the correct patient and procedure. The patient's procedural site was prepped and draped in the usual fashion. Local anesthetic was given subcutaneously to right radial region with Lidocaine 2% . Using a modified Seldinger technique, arterial access was obtained via the right radial artery, a 6 Fr sheath was inserted. Left Coronary Artery selective angiography was performed in multiple views u sing a 5 Fr. 4.0 Edwall catheter. Right Coronary Artery selective angiography was then performed in mu ltiple views using a 5 Fr. 4.0 Edwall catheter. Left Ventriculography was performed in KERR projection using a 5 Fr. Pigtail catheter. LV to AO pullback pressures were then recorded.The arterial sheath was pulled and a TR Band was applied for hemostasis 10cc air CORONARY ANGIOGRAPHY DOMINANCE: Right Dominant LEFT HEART ASSESSMENT Left Ventricular Ejection Fraction: by LV Gram 65 % Normal LV wall motion Elevated Left Ventricular End Diastolic Pressure LVEDP: 21 mmHg LEFT MAIN: Angiographically normal LEFT ANTERIOR DESCENDING ARTERY: PROX LAD: Mild luminal irregularities CIRCUMFLEX ARTERY: PROX CIRC: smooth: eccentric: 10 - 25 % Stenosis RIGHT CORONARY ARTERY: PROX RCA: Previously placed stent is patent with minimal luminal irregularities MID RCA: s/p stent: 25 - 50 % Stenosis ACUTE MARGINAL: ostial / proximal: 50 % Stenosis AORTIC ROOT: Angiographically normal COMPLICATIONS No Complications PROCEDURE MEDICATIONS Fentanyl 50 mcg IV Versed 1 mg IV Oxygen: 2 L/min via nasal cannula Solu-medrol 125 mg IV 11/24/2019 09:15:56 SUMMARY OF HEMODYNAMIC DATA Time AIR REST ECG 08:03:10 AO 158/89 (116) SA 09:42:56 LV 156/-6, 23 09:52:51 LV 155/-4, 21 09:52:57 LV 150/-2, 24 09:53:57 LV 158/-1, 27 09:54:03 LVp 168/-1, 28 09:54:07 AOp 167/80 (114) 09:54:12 Signed By Shyam Ayoub MD On 11/24/2019 10:34:00 Shyam Ayoub MD
== END 2019-11-24 11:35 | disposition home or self-care (01) ==
LOC: CLSP 07:49
PROVIDERS: Nurse Practitioner Family; PCP Family Medicine; Referring Provider Internal Medicine Cardiovascular Disease; Visit Provider Internal Medicine Cardiovascular Disease
DX: I25.10 Atherosclerotic heart disease of native coronary artery without angina pectoris (principal); I49.3 Ventricular premature depolarization; I34.0 Nonrheumatic mitral (valve) insufficiency; I10 Essential (primary) hypertension; E78.5 Hyperlipidemia, unspecified; J45.909 Unspecified asthma, uncomplicated; Z79.82 Long term (current) use of aspirin; Z79.899 Other long term (current) drug therapy; R94.39 Abnormal result of other cardiovascular function study; Z95.5 Presence of coronary angioplasty implant and graft
CPT/HCPCS: 36415; 71046; 80048; 80061; 80076; 85025; 85610; 93458; 99152; 99153; J7040; C1769; C1894; Q9967

== ENCOUNTER → 2020-05-08 | Outpatient (CLI) | payer MEDICARE, OTHER, SELFPAY ==
[2020-05-06 13:19] VITALS: BMI 29.4
[2020-05-08 10:03] LABS: AST(SGOT) 22 U/L (15-37); Alanine Aminotransfer ALT/SGPT 37 U/L (16-61); Albumin, Serum 3.9 g/dL (3.2-5.0); Alkaline Phosphatase 112 U/L (45-117); Bilirubin, Direct 0.19 mg/dL (0.00-0.30); Cholesterol 132 mg/dL (200); Globulin 3.1 g/dL (2.2-4.2); High Density Lipoprotein 46 mg/dL; Triglycerides 101 mg/dL; Very Low Density Lipoprotein 20 mg/dL (5-40)
== END | disposition home or self-care (01) ==
LOC: LABSPEC 08:17
PROVIDERS: PCP Internal Medicine; Referring Provider Internal Medicine Cardiovascular Disease; Visit Provider Internal Medicine Cardiovascular Disease
DX: E78.00 Pure hypercholesterolemia, unspecified (principal)
CPT/HCPCS: 36415; 80061; 80076

== ENCOUNTER → 2020-07-08 08:29 | Outpatient (CLI) | payer MEDICARE, OTHER, SELFPAY ==
[2020-07-02 08:49] VITALS: BMI 29.2
--- NOTE | 2020-07-08 08:30 | RAD_ITS ---
STUDY: X-RAY - LEFT ANKLE REASON FOR EXAM: Male, 69 years old. Left ankle medial pain, no injury -- several months TECHNIQUE: 3 view(s) of the ankle. COMPARISON: None. FINDINGS: Normal visualized distal tibia and fibula. Normal medial and lateral malleoli. Normal tibiotalar articulation and ankle mortise. A spur is seen at the insertion of the Achilles tendon as well as on on the plantar aspect of the calcaneus. The visualized subtalar, talonavicular, calcaneocuboid and tarsal articulations are normal. The soft tissue structures are unremarkable. RAD/Ankle min 3 Views IMPRESSION: Calcaneal spurs. Electronically Signed: Bennett Walton MD at 10:58 EDT , Service support ,
== END ==
PROVIDERS: PCP Internal Medicine; Referring Provider Internal Medicine; Visit Provider Internal Medicine
DX: M25.572 Pain in left ankle and joints of left foot (principal)
CPT/HCPCS: 73610

== ENCOUNTER → 2020-10-02 08:55 | Outpatient (CLI) | payer MEDICARE, OTHER, SELFPAY ==
[2020-10-02 08:34] VITALS: BMI 28.1
[2020-10-02 12:11] LABS: Absolute Lymphocyte Count 0.82 X10^3/uL (0.83-4.51); Absolute Neutrophil Count 2.5 X10^3/uL (2.0-7.7); Basophil# 0.01 X10^3/uL; Basophil% 0.3 % (0-1); Eosinophil# 0.16 X10^3/uL; Hematocrit 44.7 % (40-54); Hemoglobin 14.3 g/dL (13.0-16.5); Lymphocyte # 0.82 X10^3/ul (0.83-4.51); Lymphocyte % 20.7 % (19-41); Mean Corpuscular Hgb 28.7 pg (27.0-32.0); Mean Corpuscular Volume 89.8 fL (80-94); Mean Platelet Vol. 10.9 fl (6.2-12.0); Monocyte# 0.41 X10^3/uL; Monocyte% 10.4 % (0-10); NRBC Flagged by Analyzer 0 % (0-5); Neutrophil # 2.54 X10^3/uL (2.7-7.7); Neutrophil % 64.1 % (47-70); Platelet Count 134 K/mm3 (150-450); RBC Distribution Width SD 42.5 fl (35.1-43.9); Red Blood Count 4.98 M/mm3 (4.6-6.2)
[2020-10-02 12:26] LABS: Anion Gap 2 (5-15); BUN 14 mg/dL (7-18); BUN/Creat Ratio 14.9 RATIO (10-20); Calcium,Total 8.9 mg/dL (8.5-10.1); Chloride 108 mmol/L (98-107); Creatinine, Serum 0.94 mg/dL (0.70-1.30); EST Glomerular Filtration Rate 85 mL/min (>60); Est Glom Filt Rate - Afr Amer 102 mL/min (>60); Glucose 85 mg/dL (74-106); Potassium 4.4 mmol/L (3.5-5.1); Sodium Level 139 mmol/L (136-145)
[2020-10-02 12:29] LABS: AST(SGOT) 16 U/L (15-37); Alanine Aminotransfer ALT/SGPT 24 U/L (16-61); Albumin, Serum 3.8 g/dL (3.2-5.0); Alkaline Phosphatase 105 U/L (45-117); Bilirubin, Direct 0.23 mg/dL (0.00-0.30); Cholesterol 133 mg/dL (200); Globulin 3.1 g/dL (2.2-4.2); High Density Lipoprotein 49 mg/dL; Protein, Total 6.9 g/dL (6.4-8.2); Triglycerides 120 mg/dL; Very Low Density Lipoprotein 24 mg/dL (5-40)
== END ==
PROVIDERS: Internal Medicine Cardiovascular Disease; PCP Internal Medicine; Referring Provider Internal Medicine; Visit Provider Internal Medicine
DX: I10 Essential (primary) hypertension (principal); E78.00 Pure hypercholesterolemia, unspecified
CPT/HCPCS: 36415; 80048; 80061; 80076; 85025

== ENCOUNTER 2021-04-21 08:23 | Outpatient (CLI) | payer MEDICARE, OTHER, SELFPAY ==
[2021-04-21 10:06] LABS: AST(SGOT) 39 U/L (15-37); Alanine Aminotransfer ALT/SGPT 57 U/L (16-61); Albumin, Serum 3.7 g/dL (3.2-5.0); Alkaline Phosphatase 106 U/L (45-117); Bilirubin, Direct 0.14 mg/dL (0.00-0.30); Cholesterol 138 mg/dL (200); Globulin 3.6 g/dL (2.2-4.2); High Density Lipoprotein 49 mg/dL; Protein, Total 7.3 g/dL (6.4-8.2); Triglycerides 131 mg/dL; Very Low Density Lipoprotein 26 mg/dL (5-40)
== END 2021-04-21 23:59 | disposition short-term general hospital (02) ==
LOC: LAB 08:27
PROVIDERS: PCP Internal Medicine; Referring Provider Physician Assistant Medical; Visit Provider Physician Assistant Medical
DX: E78.5 Hyperlipidemia, unspecified (principal)
CPT/HCPCS: 36415; 80061; 80076

== ENCOUNTER 2021-04-30 16:14 | Outpatient (CLI) | payer MEDICARE, OTHER, SELFPAY ==
[2021-04-30 17:08] LABS: Absolute Lymphocyte Count 1.43 X10^3/uL (0.83-4.51); Absolute Neutrophil Count 3.2 X10^3/uL (2.0-7.7); Basophil# 0.02 X10^3/uL; Basophil% 0.4 % (0-1); Eosinophil# 0.24 X10^3/uL; Eosinophils% 4.5 % (0-5); Hematocrit 45.2 % (40-54); Hemoglobin 15.1 g/dL (13.0-16.5); Lymphocyte # 1.43 X10^3/ul (0.83-4.51); Lymphocyte % 26.7 % (19-41); Mean Corp Hgb Conc 33.4 g/dL (32-36); Mean Corpuscular Hgb 29.5 pg (27.0-32.0); Mean Corpuscular Volume 88.3 fL (80-94); Monocyte# 0.47 X10^3/uL; Monocyte% 8.8 % (0-10); NRBC Flagged by Analyzer 0 % (0-5); Neutrophil # 3.15 X10^3/uL (2.7-7.7); Neutrophil % 58.9 % (47-70); Platelet Count 154 K/mm3 (150-450); RBC Distribution Width CV 12.5 % (11.6-14.6); RBC Distribution Width SD 40.5 fl (35.1-43.9); Red Blood Count 5.12 M/mm3 (4.6-6.2); White Blood Count 5.4 K/mm3 (4.4-11.0)
[2021-04-30 17:44] LABS: ALB/GLOB Ratio 1.3 RATIO (0.9-2.4); AST(SGOT) 23 U/L (15-37); Alanine Aminotransfer ALT/SGPT 48 U/L (16-61); Albumin, Serum 4.2 g/dL (3.2-5.0); Alkaline Phosphatase 96 U/L (45-117); Anion Gap 7 (5-15); BUN 20 mg/dL (7-18); Calcium,Total 9.2 mg/dL (8.5-10.1); Chloride 105 mmol/L (98-107); Creatinine, Serum 1.05 mg/dL (0.70-1.30); EST Glomerular Filtration Rate 74 mL/min (>60); Est Glom Filt Rate - Afr Amer 90 mL/min (>60); Globulin 3.3 g/dL (2.2-4.2); Glucose 82 mg/dL (74-106); PSA,Total - Annual Screen 2.37 ng/mL (0.00-4.00); Potassium 4.3 mmol/L (3.5-5.1); Protein, Total 7.5 g/dL (6.4-8.2); Sodium Level 137 mmol/L (136-145); Thyroid Stim Hormone (TSH) 2.05 uIU/mL (0.358-3.74)
[2021-05-01 09:34] LABS: Hepatitis C Antibody Non-Reactive (Nonreactive)
== END 2021-04-30 23:59 | disposition short-term general hospital (02) ==
LOC: POLAB3 16:16
PROVIDERS: PCP Family Medicine Geriatric Medicine; Visit Provider Family Medicine Geriatric Medicine
DX: R53.83 Other fatigue (principal); Z12.5 Encounter for screening for malignant neoplasm of prostate; Z13.89 Encounter for screening for other disorder
CPT/HCPCS: 36415; 80053; 84153; 84443; 85025; 86803; G0103

== ENCOUNTER 2021-05-26 08:33 | Outpatient (CLI) | payer MEDICARE, OTHER, SELFPAY ==
--- NOTE | 2021-05-26 08:35 | US_ITS ---
PROCEDURES: ULTRASOUND AORTA REASON FOR EXAM: Male, 70 years old. ROUTINE MEDICAL EXAM. Screening for abdominal aortic aneurysm. TECHNIQUE: Ultrasound evaluation of the aorta was performed with real-time and static motta-scale imaging. COMPARISON: None. FINDINGS: There is no elongation or tortuosity of the abdominal aorta. Aorta measures: Proximal 2.1 cm. Middle 1.8 cm. Distal 1.7 cm. Aorta measure transversely: Proximal 2.3 cm. Middle 1.7 cm. Distal 1.6 cm. Right iliac artery measures: 1.2 cm. Right iliac artery measure transversely: 1.2 cm. Left iliac artery measures: 1.1 cm. Left iliac artery measure transversely: 1.1 cm. There is no demonstrated aneurysm.. US/Aorta IMPRESSION: Normal abdominal aorta. Electronically Signed: Bennett Walton MD at 12:56 EST ,
== END 2021-05-26 23:59 | disposition home or self-care (01) ==
LOC: US 08:33
PROVIDERS: PCP Family Medicine Geriatric Medicine; Referring Provider Family Medicine Geriatric Medicine; Visit Provider Family Medicine Geriatric Medicine
DX: Z00.00 Encounter for general adult medical examination without abnormal findings (principal)
CPT/HCPCS: 76775

== ENCOUNTER 2021-07-31 10:44 | Outpatient (CLI) | payer MEDICARE, OTHER, SELFPAY ==
[2021-07-31 12:36] LABS: Absolute Lymphocyte Count 1.16 X10^3/uL (0.83-4.51); Absolute Neutrophil Count 2.9 X10^3/uL (2.0-7.7); Basophil# 0.01 X10^3/uL; Basophil% 0.2 % (0-1); Eosinophil# 0.07 X10^3/uL; Eosinophils% 1.5 % (0-5); Hematocrit 43.9 % (40-54); Hemoglobin 14.5 g/dL (13.0-16.5); Lymphocyte # 1.16 X10^3/ul (0.83-4.51); Lymphocyte % 25.6 % (19-41); Mean Corpuscular Hgb 29.2 pg (27.0-32.0); Mean Corpuscular Volume 88.5 fL (80-94); Mean Platelet Vol. 10.7 fl (6.2-12.0); Monocyte# 0.36 X10^3/uL; Monocyte% 7.9 % (0-10); NRBC Flagged by Analyzer 0 % (0-5); Neutrophil # 2.89 X10^3/uL (2.7-7.7); Neutrophil % 63.9 % (47-70); Platelet Count 141 K/mm3 (150-450); RBC Distribution Width CV 13.6 % (11.6-14.6); Red Blood Count 4.96 M/mm3 (4.6-6.2); White Blood Count 4.5 K/mm3 (4.4-11.0)
[2021-07-31 12:49] LABS: Vitamin D,25 Hydroxy 33.2 ng/mL
[2021-07-31 13:00] LABS: ALB/GLOB Ratio 1.2 RATIO (0.9-2.4); AST(SGOT) 23 U/L (15-37); Alanine Aminotransfer ALT/SGPT 38 U/L (16-61); Albumin, Serum 3.8 g/dL (3.2-5.0); Alkaline Phosphatase 83 U/L (45-117); Anion Gap 2 (5-15); BUN 16 mg/dL (7-18); BUN/Creat Ratio 15.2 RATIO (10-20); Calcium,Total 8.8 mg/dL (8.5-10.1); Chloride 108 mmol/L (98-107); Creatinine, Serum 1.05 mg/dL (0.70-1.30); EST Glomerular Filtration Rate 74 mL/min (>60); Est Glom Filt Rate - Afr Amer 90 mL/min (>60); Globulin 3.2 g/dL (2.2-4.2); Glucose 104 mg/dL (74-106); Potassium 4.1 mmol/L (3.5-5.1); Sodium Level 139 mmol/L (136-145); Thyroid Stim Hormone (TSH) 1.24 uIU/mL (0.358-3.74)
== END 2021-07-31 23:59 | disposition home or self-care (01) ==
LOC: POLAB3 10:46
PROVIDERS: PCP Family Medicine Geriatric Medicine; Visit Provider Family Medicine Geriatric Medicine
DX: R53.83 Other fatigue (principal); F52.8 Other sexual dysfunction not due to a substance or known physiological condition; E55.9 Vitamin D deficiency, unspecified
CPT/HCPCS: 36415; 80053; 82306; 84403; 84443; 85025

== ENCOUNTER → 2021-10-30 | Outpatient (CLI) | payer MEDICARE, OTHER, SELFPAY ==
[2021-10-30 12:49] LABS: Absolute Lymphocyte Count 1.19 X10^3/uL (0.83-4.51); Absolute Neutrophil Count 3.4 X10^3/uL (2.0-7.7); Basophil# 0.02 X10^3/uL; Basophil% 0.4 % (0-1); Eosinophil# 0.12 X10^3/uL; Eosinophils% 2.3 % (0-5); Hematocrit 43.3 % (40-54); Hemoglobin 14.3 g/dL (13.0-16.5); Lymphocyte # 1.19 X10^3/ul (0.83-4.51); Lymphocyte % 22.4 % (19-41); Mean Corpuscular Hgb 29.2 pg (27.0-32.0); Mean Corpuscular Volume 88.5 fL (80-94); Mean Platelet Vol. 11.6 fl (6.2-12.0); Monocyte# 0.51 X10^3/uL; Monocyte% 9.6 % (0-10); NRBC Flagged by Analyzer 0 % (0-5); Neutrophil # 3.44 X10^3/uL (2.7-7.7); Neutrophil % 64.7 % (47-70); Platelet Count 123 K/mm3 (150-450); RBC Distribution Width SD 38.5 fl (35.1-43.9); Red Blood Count 4.89 M/mm3 (4.6-6.2); White Blood Count 5.3 K/mm3 (4.4-11.0)
[2021-10-30 12:59] LABS: ALB/GLOB Ratio 1.2 RATIO (0.9-2.4); AST(SGOT) 24 U/L (15-37); Alanine Aminotransfer ALT/SGPT 39 U/L (16-61); Albumin, Serum 3.8 g/dL (3.2-5.0); Alkaline Phosphatase 88 U/L (45-117); Anion Gap 5 (5-15); BUN 15 mg/dL (7-18); BUN/Creat Ratio 14.9 RATIO (10-20); Calcium,Total 8.8 mg/dL (8.5-10.1); Chloride 105 mmol/L (98-107); Creatinine, Serum 1.01 mg/dL (0.70-1.30); EST Glomerular Filtration Rate 77 mL/min (>60); Est Glom Filt Rate - Afr Amer 94 mL/min (>60); Globulin 3.1 g/dL (2.2-4.2); Glucose 99 mg/dL (74-106); Protein, Total 6.9 g/dL (6.4-8.2); Sodium Level 138 mmol/L (136-145); Thyroid Stim Hormone (TSH) 2.21 uIU/mL (0.358-3.74)
== END | disposition home or self-care (01) ==
LOC: POLAB3 11:14
PROVIDERS: PCP Family Medicine Geriatric Medicine; Visit Provider Family Medicine Geriatric Medicine
DX: E55.9 Vitamin D deficiency, unspecified (principal); F52.8 Other sexual dysfunction not due to a substance or known physiological condition; R53.83 Other fatigue
CPT/HCPCS: 36415; 80053; 82306; 84403; 84443; 85025

== ENCOUNTER → 2022-01-21 | Outpatient (CLI) | payer MEDICARE, OTHER, SELFPAY ==
--- NOTE | 2022-01-21 13:33 | NEURO ---
NCS and/or EMG Patient Report Ordering Doctor: Gavin Lyons Chi DATE OF SERVICE: 01/21/22 Tj presents for electrodiagnostic testing of the upper limbs. He reports weakness and numbness in both hands. He reports stiffness. Electrodiagnostic findings: Left median motor nerve demonstrates normal distal latency and amplitude with reduction in conduction velocity. Right median motor nerve demonstrates prolonged distal latency with normal amplitude and reduced conduction velocity. Ulnar motor response is normal bilaterally. Borderline prolonged median F wave bilaterally. Prolonged median sensory latency at the wrist bilaterally. Normal ulnar and radial sensory responses. On needle EMG, all muscles tested in the upper limbs showed no evidence of denervation with normal motor unit action potentials. Electrodiagnostic impression: This is an abnormal study in the upper limbs. 1. Electrodiagnostic findings suggestive of bilateral median mononeuropathy. This consistent with a mild bilateral carpal tunnel syndrome. 2. No electrodiagnostic evidence is noted for cervical radiculopathy.
== END | disposition home or self-care (01) ==
LOC: PSN 10:14
PROVIDERS: PCP Family Medicine Geriatric Medicine; Referring Provider Family Medicine Geriatric Medicine; Visit Provider Family Medicine Geriatric Medicine
DX: R20.2 Paresthesia of skin (principal)
CPT/HCPCS: 95886; 95913

== ENCOUNTER → 2022-02-13 | Outpatient (CLI) | payer MEDICARE, OTHER, SELFPAY ==
[2022-02-13 13:12] LABS: Absolute Lymphocyte Count 1.79 X10^3/uL (0.83-4.51); Absolute Neutrophil Count 3.8 X10^3/uL (2.0-7.7); Basophil# 0.03 X10^3/uL; Basophil% 0.5 % (0-1); Eosinophil# 0.12 X10^3/uL; Eosinophils% 1.8 % (0-5); Hematocrit 43.3 % (40-54); Hemoglobin 14.3 g/dL (13.0-16.5); Lymphocyte # 1.79 X10^3/ul (0.83-4.51); Lymphocyte % 27.5 % (19-41); Mean Corpuscular Hgb 29.2 pg (27.0-32.0); Mean Corpuscular Volume 88.5 fL (80-94); Mean Platelet Vol. 11.4 fl (6.2-12.0); Monocyte# 0.52 X10^3/uL; NRBC Flagged by Analyzer 0 % (0-5); Neutrophil # 3.75 X10^3/uL (2.7-7.7); Neutrophil % 57.7 % (47-70); Platelet Count 135 K/mm3 (150-450); RBC Distribution Width CV 13.2 % (11.6-14.6); RBC Distribution Width SD 42.9 fl (35.1-43.9); Red Blood Count 4.89 M/mm3 (4.6-6.2); White Blood Count 6.5 K/mm3 (4.4-11.0)
[2022-02-13 13:40] LABS: Vitamin D,25 Hydroxy 33.5 ng/mL
[2022-02-13 13:49] LABS: ALB/GLOB Ratio 1.4 RATIO (0.9-2.4); AST(SGOT) 16 U/L (15-37); Alanine Aminotransfer ALT/SGPT 37 U/L (16-61); Albumin, Serum 3.8 g/dL (3.2-5.0); Alkaline Phosphatase 78 U/L (45-117); Anion Gap 5 (5-15); BUN 21 mg/dL (7-18); BUN/Creat Ratio 22.1 RATIO (10-20); Calcium,Total 8.4 mg/dL (8.5-10.1); Chloride 106 mmol/L (98-107); Creatinine, Serum 0.95 mg/dL (0.70-1.30); EST Glomerular Filtration Rate 83 mL/min (>60); Est Glom Filt Rate - Afr Amer 100 mL/min (>60); Globulin 2.8 g/dL (2.2-4.2); Glucose 95 mg/dL (74-106); Potassium 3.7 mmol/L (3.5-5.1); Protein, Total 6.6 g/dL (6.4-8.2); Sodium Level 139 mmol/L (136-145); Thyroid Stim Hormone (TSH) 2.75 uIU/mL (0.358-3.74)
== END | disposition home or self-care (01) ==
LOC: POLAB3 08:55
PROVIDERS: PCP Family Medicine Geriatric Medicine; Visit Provider Family Medicine Geriatric Medicine
DX: E55.9 Vitamin D deficiency, unspecified (principal); R53.83 Other fatigue
CPT/HCPCS: 36415; 80053; 82306; 84443; 85025

== ENCOUNTER → 2022-05-01 | Outpatient (CLI) | payer MEDICARE, OTHER, SELFPAY ==
[2022-05-01 13:12] LABS: Absolute Lymphocyte Count 0.96 X10^3/uL (0.83-4.51); Absolute Neutrophil Count 2.6 X10^3/uL (2.0-7.7); Basophil# 0.01 X10^3/uL; Basophil% 0.2 % (0-1); Eosinophil# 0.14 X10^3/uL; Eosinophils% 3.4 % (0-5); Hematocrit 45.4 % (40-54); Hemoglobin 14.5 g/dL (13.0-16.5); Lymphocyte # 0.96 X10^3/ul (0.83-4.51); Mean Corp Hgb Conc 31.9 g/dL (32-36); Mean Corpuscular Hgb 28.9 pg (27.0-32.0); Mean Corpuscular Volume 90.4 fL (80-94); Mean Platelet Vol. 11.6 fl (6.2-12.0); Monocyte# 0.39 X10^3/uL; Monocyte% 9.4 % (0-10); NRBC Flagged by Analyzer 0 % (0-5); Neutrophil # 2.63 X10^3/uL (2.7-7.7); Platelet Count 136 K/mm3 (150-450); RBC Distribution Width CV 13.2 % (11.6-14.6); RBC Distribution Width SD 43.8 fl (35.1-43.9); Red Blood Count 5.02 M/mm3 (4.6-6.2); White Blood Count 4.2 K/mm3 (4.4-11.0)
[2022-05-01 13:27] LABS: Vitamin D,25 Hydroxy 28.7 ng/mL
[2022-05-01 13:46] LABS: ALB/GLOB Ratio 1.4 RATIO (0.9-2.4); AST(SGOT) 17 U/L (15-37); Alanine Aminotransfer ALT/SGPT 29 U/L (16-61); Alkaline Phosphatase 67 U/L (45-117); Anion Gap 7 (5-15); BUN 23 mg/dL (7-18); BUN/Creat Ratio 20.5 RATIO (10-20); Calcium,Total 8.9 mg/dL (8.5-10.1); Chloride 111 mmol/L (98-107); Creatinine, Serum 1.12 mg/dL (0.70-1.30); EST Glomerular Filtration Rate 69 mL/min (>60); Est Glom Filt Rate - Afr Amer 83 mL/min (>60); Globulin 2.9 g/dL (2.2-4.2); Glucose 85 mg/dL (74-106); Potassium 3.9 mmol/L (3.5-5.1); Protein, Total 6.9 g/dL (6.4-8.2); Sodium Level 141 mmol/L (136-145); Thyroid Stim Hormone (TSH) 2.47 uIU/mL (0.358-3.74)
== END | disposition home or self-care (01) ==
LOC: POLAB3 09:26
PROVIDERS: PCP Family Medicine Geriatric Medicine; Visit Provider Family Medicine Geriatric Medicine
DX: E55.9 Vitamin D deficiency, unspecified (principal); E51.8 Other manifestations of thiamine deficiency; R53.83 Other fatigue
CPT/HCPCS: 36415; 80053; 82306; 84403; 84443; 85025

== ENCOUNTER → 2022-05-22 | Outpatient (CLI) | payer MEDICARE, OTHER, SELFPAY | END | disposition home or self-care (01) | LOC: PSN 11:19 | PROVIDERS: PCP Family Medicine Geriatric Medicine; Referring Provider Family Medicine Geriatric Medicine; Visit Provider Family Medicine Geriatric Medicine | DX: R68.83 Chills (without fever) (principal); Z20.822 Contact with and (suspected) exposure to COVID-19 | CPT/HCPCS: 87635; 87804; 87807; C9803; U0003; U0005 ==

== ENCOUNTER → 2022-10-28 | Outpatient (CLI) | payer MEDICARE, OTHER, SELFPAY ==
[2022-10-28 12:01] LABS: Absolute Lymphocyte Count 0.92 X10^3/uL (0.83-4.51); Absolute Neutrophil Count 2.5 X10^3/uL (2.0-7.7); Basophil# 0.01 X10^3/uL; Basophil% 0.3 % (0-1); Eosinophil# 0.17 X10^3/uL; Eosinophils% 4.3 % (0-5); Hematocrit 45.2 % (40-54); Hemoglobin 14.6 g/dL (13.0-16.5); Lymphocyte # 0.92 X10^3/ul (0.83-4.51); Lymphocyte % 23.2 % (19-41); Mean Corp Hgb Conc 32.3 g/dL (32-36); Mean Corpuscular Hgb 28.3 pg (27.0-32.0); Mean Corpuscular Volume 87.8 fL (80-94); Mean Platelet Vol. 11.6 fl (6.2-12.0); Monocyte# 0.37 X10^3/uL; Monocyte% 9.3 % (0-10); NRBC Flagged by Analyzer 0 % (0-5); Neutrophil # 2.47 X10^3/uL (2.7-7.7); Neutrophil % 62.4 % (47-70); Platelet Count 128 K/mm3 (150-450); RBC Distribution Width CV 12.8 % (11.6-14.6); RBC Distribution Width SD 41.4 fl (35.1-43.9); Red Blood Count 5.15 M/mm3 (4.6-6.2)
[2022-10-28 12:26] LABS: Vitamin D,25 Hydroxy 42.9 ng/mL
[2022-10-28 12:33] LABS: ALB/GLOB Ratio 1.2 RATIO (0.9-2.4); AST(SGOT) 24 U/L (15-37); Alanine Aminotransfer ALT/SGPT 28 U/L (16-61); Albumin, Serum 3.8 g/dL (3.2-5.0); Alkaline Phosphatase 90 U/L (45-117); Anion Gap 5 (5-15); BUN 24 mg/dL (7-18); BUN/Creat Ratio 22.4 RATIO (10-20); Calcium,Total 8.9 mg/dL (8.5-10.1); Chloride 108 mmol/L (98-107); Creatinine, Serum 1.07 mg/dL (0.70-1.30); EST Glomerular Filtration Rate 72 mL/min (>60); Est Glom Filt Rate - Afr Amer 87 mL/min (>60); Globulin 3.1 g/dL (2.2-4.2); Glucose 99 mg/dL (74-106); Protein, Total 6.9 g/dL (6.4-8.2); Sodium Level 139 mmol/L (136-145); Thyroid Stim Hormone (TSH) 1.86 uIU/mL (0.358-3.74)
== END | disposition home or self-care (01) ==
LOC: POLAB3 08:52
PROVIDERS: PCP Family Medicine Geriatric Medicine; Visit Provider Family Medicine Geriatric Medicine
DX: R53.83 Other fatigue (principal); E55.9 Vitamin D deficiency, unspecified
CPT/HCPCS: 36415; 80053; 82306; 84443; 85025; 88305

== ENCOUNTER 2022-11-03 10:09 | Outpatient (CLI) | payer MEDICARE, OTHER, SELFPAY ==
[2022-11-06 00:07] LABS: Lyme IgG P18 Ab Absent (.); Lyme IgG P23 Ab Absent (.); Lyme IgG P28 Ab Absent (.); Lyme IgG P30 Ab Absent (.); Lyme IgG P39 Ab Absent (.); Lyme IgG P41 Ab Present (.); Lyme IgG P45 Ab Absent (.); Lyme IgG P58 Ab Absent (.); Lyme IgG P66 Ab Absent (.); Lyme IgG P93 Ab Absent (.); Lyme IgG WB Interpretation Negative (.); Lyme IgM P23 Ab Absent (.); Lyme IgM P39 Ab Absent (.); Lyme IgM P41 Ab Absent (.); Lyme IgM WB Interpretation Negative (.)
== END 2022-11-03 23:59 | disposition home or self-care (01) ==
PROVIDERS: PCP Family Medicine Geriatric Medicine; Visit Provider Family Medicine Geriatric Medicine
DX: S40.862A Insect bite (nonvenomous) of left upper arm, initial encounter (principal); W57.XXXA Bitten or stung by nonvenomous insect and other nonvenomous arthropods, initial encounter
CPT/HCPCS: 36415; 86617

== ENCOUNTER → 2023-06-25 | Outpatient (CLI) | payer MEDICARE, SELFPAY ==
--- OUTSIDE RECORDS SUMMARY | 2023-06-25 11:48 | XMS RPT_ITS | CCD ---
Author Name Unknown Address [address] [place] [address] Organization [facility] Care Team Providers Care Flight Operations Engineer Name Role Phone Unavailable Unavailable Unavailable Ash Dos Santos Unavailable [phone] Shobha Macedo Unavailable Unavailable Shobha Macedo Unavailable Unavailable Shobha Macedo Unavailable Unavailable Shobha Macedo Unavailable Unavailable Ash Dos Santos Primary Care Provider SHOBHA MACEDO Attending Unavailable SHOBHA MACEDO Referring Unavailable ISHAN, ASH SIM Primary Care Unavailable SHOBHA MACEDO Attending Unavailable SHOBHA MACEDO Referring Unavailable ISHAN, ASH SIM Primary Care Unavailable SHOBHA MACEDO Attending Unavailable SHOBHA MACEDO Referring Unavailable ISHAN, ASH SIM Primary Care Unavailable Ash Dos Santos Primary Care Provider SHOBHA MACEDO Attending Unavailable ISHANASH CAT Primary Care Unavailable SHOBHA MACEDO Attending Unavailable ISHAN, ASH SIM Primary Care Unavailable SHOBHA MACEDO Attending Unavailable ISHANAHS CAT Primary Care Unavailable SHOBHA MACEDO Attending Unavailable ISHAN, ASH SIM Primary Care Unavailable SHOBHA MACEDO Attending Unavailable ISHANASH CAT Primary Care Unavailable Kurt, Xuan Chi Primary Care Provider [phone] Kurt, Xuan Chi Primary Care Provider Kurt, Xuan Chi Primary Care Provider [phone] Kurt, Xuan Chi Primary Care Provider KURT, XUAN CHI Primary Care Unavailable SHOBHA MACEDO Referring Unavailable SHOBHA MACEDO Attending Unavailable KURT, XUAN CHI Primary Care Unavailable SHOBHA MACEDO Referring Unavailable SHOBHA MACEDO Attending Unavailable XUAN HICKS CHI Primary Care Unavailable Allergies Allergy Classification Reported Allergen(s) Allergy Type Date of Onset Reaction(s) Facility (14 sources) Penicillins; Translations: [Unknown] Propensity to adverse reactions to drug 9 [facility] (12 sources) Sulfonamides (Antibiotic); Translations: [SULFA (SULFONAMIDE ANTIBIOTICS)] Propensity to adverse reactions to drug 9 [facility] (1 source) Penicillins Propensity to adverse reactions 9 [facility] Work Phone: (15 sources) Sulfonamides (Antibiotic) Propensity to adverse reactions 9 [facility] Work Phone: (16 sources) Adhesive Tape-Silicones; Translations: [ADHESIVE TAPE-SILICONES] Drug Allergy 2 Rash [facility] (14 sources) Penicillins Propensity to adverse reactions 9 [facility] Work Phone: Medications Current Medications Medication Drug Class(es) Dates Sig (Normalized) Sig (Original) albuterol 0.83 mg/ml inhalant solution (16 sources) beta2-Adrenergic Agonist Start: 05-12-2019 take 2.5 mg by inhalation every twenty-four hours as needed albuterol (PROVENTIL) 2.5 mg /3 mL (0.083 %) nebulizer solution 2.5 mg Completed/Discontinued Medications Medication Drug Class(es) Dates Sig (Normalized) Sig (Original) ascorbic acid 1000 mg oral tablet (1 source) Vitamin C Start: 11-28-2008 End: 07-24-2021 ascorbic acid(VITAMIN C 1,000 MG TAB) Indications: Iron deficiency anemia, unspecified , Thrombocytopenia, unspecified (HCC) Take one(1) tablet daily. 0 11/28/2008 07/24/2021 Discontinued Problems Problem Classification Problem Date Documented Da te Episodic/Chronic Acute bronchitis (1 source) Acute bronchitis; Translations: [Acute bronchitis, unspecified organism] Episodic Asthma (20 sources) Mild intermittent asthma; Translations: [Mild asthma] Onset: 09-30-2017 09-30-2017 Chronic Coagulation and hemorrhagic disorders (15 sources) Platelet count below reference range; Translations: [Thrombocytopenia, unspecified] Onset: 11-28-2008 11-28-2008 Chronic Immunizations and screening for infectious disease (1 source) Needs influenza immunization; Translations: [Encounter for immunization] 02-02-2023 Episodic Other lower respiratory disease (5 sources) Cough; Translations: [Acute cough] Episodic Other lower respiratory disease (1 source) Dyspnea; Translations: [SOB (shortness of breath)] Episodic Other lower respiratory disease (1 source) Lung mass; Translations: [Lung nodule] Episodic Other upper respiratory disease (2 sources) Seasonal allergic rhinitis; Translations: [Other seasonal allergic rhinitis] Chronic Other upper respiratory disease (1 source) Disorder of nasal sinus; Translations: [Sinus disease] Episodic Other upper respiratory infections (1 source) Posterior rhinorrhea; Translations: [Postnasal drip] Episodic Results Test Name Value Interpretation Reference Range Facil ity Vital Signs Date Time Vital Sign Value Performing Clinician Beverly davis 02-02-2023 08:50-0400 Body weight 89.81 kg Shobha Macedo MD Work Phone: [facility] 02-16-2022 10:41-0400 Body weight 89.36 kg Barbara Sterling PA-C Work Phone: [facility] 02-16-2022 10:41-0400 Diastolic blood pressure 80 mm[Hg] Barbara Sterling PA-C Work Phone: [facility] 02-16-2022 10:41-0400 Heart rate 64 /min Barbara Sterling PA-C Work Phone: [facility] 02-16-2022 10:41-0400 Respiratory rate 17 /min Barbara Sterling PA-C Work Phone: [facility] 02-16-2022 10:41-0400 SaO2% (BldA) [Mass fraction] 96 % Barbara Sterling PA-C Work Phone: [facility] 02-16-2022 10:41-0400 Systolic blood pressure 128 mm[Hg] Barbara Sterling PA-C Work Phone: [facility] 02-09-2022 14:38-0400 Body temperature 98.2 [degF] Ayanna SNOWDEN-C Work Phone: [facility] 02-09-2022 14:38-0400 Body weight 89.54 kg Ayanna Bogner PA-C Work Phone: [facility] 02-09-2022 14:38-0400 Diastolic blood pressure 82 mm[Hg] Ayanna Bogner PA-C Work Phone: [facility] 02-09-2022 14:38-0400 Heart rate 84 /min Ayanna Bogner PA-C Work Phone: [facility] 02-09-2022 14:38-0400 Respiratory rate 20 /min Ayanna Bogner PA-C Work Phone: [facility] 02-09-2022 14:38-0400 SaO2% (BldA) [Mass fraction] 95 % Ayanna Bogner PA-C Work Phone: [facility] 02-09-2022 14:38-0400 Systolic blood pressure 140 mm[Hg] Ayanna Bogner PA-C Work Phone: [facility] 01-23-2022 09:29-0400 Body weight 90.72 kg Shobha Macedo MD Work Phone: [facility] 07-24-2021 09:26-0400 Body height 177.8 cm Shobha Macedo MD Work Phone: [facility] 07-24-2021 09:26-0400 Body weight 91.17 kg Shobha Macedo MD Work Phone: [facility] 07-24-2021 09:26-0400 Diastolic blood pressure 77 mm[Hg] Shobha Macedo MD Work Phone: [facility] 07-24-2021 09:26-0400 Heart rate 83 /min Shobha Macedo MD Work Phone: [facility] 07-24-2021 09:26-0400 Respiratory rate 14 /min Shobha Macedo MD Work Phone: [facility] 07-24-2021 09:26-0400 SaO2% (BldA) [Mass fraction] 95 % Shobha Macedo MD Work Phone: [facility] 07-24-2021 09:26-0400 Systolic blood pressure 139 mm[Hg] Shobha Macedo MD Work Phone: [facility] 01-02-2020 09:26-0400 [facility] 09:26-0400 BP Diastolic 76 mm[Hg] [facility] 01-02-2020 09:26-0400 BP Systolic 140 mm[Hg] [facility] 01-02-2020 09:26-0400 Pulse (Heart Rate) 54 /min [facility] 01-02-2020 09:26-0400 Pulse Oximetry 97 % [facility] 01-02-2020 09:26-0400 Respiratory Rate 14 /min [facility] 06-22-2019 11:14-0500 Body weight 92.99 kg [facility] 06-22-2019 11:14-0500 BP Diastolic 75 mm[Hg] [facility] 06-22-2019 11:14-0500 BP Systolic 127 mm[Hg] [facility] 06-22-2019 11:14-0500 Pulse (Heart Rate) 73 /min [facility] 06-22-2019 11:14-0500 Pulse Oximetry 93 % [facility] 06-22-2019 11:14-0500 Respiratory Rate 16 /min [facility] 05-09-2019 09:59-0500 Body weight 92.99 kg [facility] 05-09-2019 09:59-0500 BP Diastolic 72 mm[Hg] [facility] 05-09-2019 09:59-0500 BP Systolic 136 mm[Hg] [facility] 05-09-2019 09:59-0500 Pulse (Heart Rate) 66 /min [facility] 05-09-2019 09:59-0500 Pulse Oximetry 95 % [facility] 05-09-2019 09:59-0500 Respiratory Rate 18 /min Shobha [facility] 03-01-2019 12:48-0500 [facility] 12:48-0500 BP Diastolic 62 mm[Hg] [facility] 03-01-2019 12:48-0500 BP Systolic 130 mm[Hg] [facility] 03-01-2019 12:48-0500 Pulse (Heart Rate) 67 /min [facility] 03-01-2019 12:48-0500 Pulse Oximetry 98 % [facility] 03-01-2019 12:48-0500 [facility]piratory Rate 14 /[facility]-24-2018 12:53-0400 BP Diastolic 68 mm[Hg] [facility] 08-24-2018 12:53-0400 BP Systolic 110 mm[Hg] [facility] 08-24-2018 12:53-0400 Pulse (Heart Rate) 66 /min [facility] 08-24-2018 12:53-0400 Pulse Oximetry 97 % [facility] 08-24-2018 12:53-0400 Respiratory Rate 16 /min [facility] 08-24-2018 12:53-0400 [address] 90[address] [facility] 04-27-2018 09:23-0500 BP Di[facility] 80 mm[facility]Hg[facility] 04-27-2018 09:23-0500 BP Systolic 132 mm[Hg[facility] 04-27-2018 09:23-0500 Pulse (Heart Rate) 74 /[facility]-27-2018 09:23-0500 Pulse Oximetry 94 % [facility] 04-27-2018 09:23-0500 Respiratory Rate 16 /min Shobha [facility] 04-27-2018 09:23-0500 [address] 90[address] [facility] 09-30-2017 09:53-0400 BP Diastolic 74 mm[Hg] [facility] 09-30-2017 09:53-0400 BP Systolic 126 mm[Hg] Shobha Macedo [facility] 09-30-2017 09:53-0400 Pulse (Heart Rate) 74 /min Shobha Macedo [facility] 09-30-2017 09:53-0400 Pulse Oximetry 95 % Shobha Macedo [facility] 09-30-2017 09:53-0400 Respiratory Rate 16 /min Shobha Macedo [facility] 09-30-2017 09:53-0400 Weight 86.18 kg Shobha Macedo [facility] Encounters Encounter Date Encounter Type Care Provider Facility Start: 03-25-2023 Refill Shobha Macedo MD Work Phone: Pulmonary Medicine Procedures Date Procedure Procedure Detail Performing Clinician Start: 02-02-2023 INFLUENZA VACCINE, P RSV FREE, AGE 65+ YR, HIGH DOSE, QUADRIVALENT (FLUZONE HIGH-DOSE) Shobha Macedo MD Work Phone: Start: 05-12-2019 COMPLETE PFT Shobha Macedo Work Phone: Start: 12-01-2018 CT of chest without contrast Shobha Macedo Work Phone: Start: 11-30-2018 Standard chest X-ray Elijah Macedo Work Phone: Plan of Treatment Date Care Activity Detail Author Start: 12-18-2022 Covid-19 Vaccine ( season) Covid-19 Vaccine ( season) [facility] Start: 04-19-2022 ADVANCE DIRECTIVE DISCUSSION ADVANCE DIRECTIVE DISCUSSION [facility] Start: 04-19-2022 DEPRESSION ASSESSMENT DEPRESSION ASSESSMENT [facility] Start: 12-18-2021 Influenza vaccination [facility] Start: 09-25-2021 COVID-19 VACCINE (5 - Booster for Moderna series) COVID-19 VACCINE (5 - Booster for Moderna series) [facility] Start: 04-19-2021 ADVANCE DIRECTIVE DISCUSSION ADVANCE DIRECTIVE DISCUSSION [facility] Start: 04-19-2021 DEPRESSION ASSESSMENT DEPRESSION ASSESSMENT [facility] Start: 03-10-2021 SHINGRIX VACCINE (3 of 3) SHINGRIX VACCINE (3 of 3) [facility] Start: 12-19-2019 Influenza vaccination given Sequential Influenza Vaccine (#1) [facility] Start: 09-06-2019 End: 09-06-2019 Office Visit 09/06/2019 Office Visit Pulmonology Shobha Macedo MD [address] [place] [address] [phone] [facility] Start: 08-24-2019 End: 08-24-2019 Office Visit 08/24/2019 Office Visit Pulmonology Shobha Macedo MD [address] [place] [address] [phone] [facility] Start: 06-22-2019 End: 06-22-2019 Office Visit 06/22/2019 Office Visit Pulmonology Shobha Macedo MD [address] [place] [address] [phone] [facility] Start: 05-12-2019 End: 05-12-2019 Appointment 05/12/2019 Appointment Pulmonology Shobha Macedo MD [address] [place] [address] [phone] [facility] Start: 03-01-2019 End: 03-01-2019 Office Visit 03/01/2019 Office Visit PulShobha Jeffery MD [address] [place] [address] [phone] [facility] Start: 12-18-2018 Influenza vaccination given [facility] Start: 12-01-2018 End: 12-01-2018 Appointment 12/01/2018 Appointment Radiology Shobha Macedo MD [address] [place] [address] [phone] [facility] Scan Start: 10-31-2018 End: 10-31-2018 Ambulatory 10/31/2018 Office Visit Shobha Melendez MD [address] [place] [address] [phone] [facility] Start: 04-05-2018 End: 04-05-2018 Ambulatory 04/05/2018 Office Visit Pulmonology Shobha Macedo MD [address] [facility] [address] [place] [address] [phone] [facility] Start: 12-18-2017 Influenza vaccination SEQUENTIAL INFLUENZA VACCINE (Season Ended) [facility] Start: 12-18-2017 Influenza vaccination given SEQUENTIAL INFLUENZA VACCINE (#1) [facility] Start: 09-22-2017 Ambulatory 09/22/2017 Hospital Encounter Shobha Macedo MD [address] [facility] [address] [place] [address] [phone] [facility] Start: 10-31-2015 Fall risk assessment [facility] Fall Risk Assessment [facility] Start: 10-31-2015 Pneumococcal vaccination PNEUMOCOCCAL VACCINE AGE 65+ (1 of 2 - PCV13) [facility] Start: 10-31-2015 Ultrasound scan of abdominal aorta ABDOMINAL AORTIC ULTRASOUND [facility] Start: 04-11-2015 Administration of herpes zoster vaccine Zoster Vaccines (2 of 3) [facility] Start: 11-29-2011 DIABETES SCREEN DIABETES SCREEN [facility] Start: 11-29-2011 Diabetes Screening Diabetes Screening [facility] Start: 2010 RSV Vaccine (1 - 1-dose 60+ series) RSV Vaccine (1 - 1-dose 60+ series) [facility] Start: 2010 Zoster vaccine hzv live for subcutaneous use ZOSTER VACCINE [facility] Start: 2000 Administration of herpes zoster vaccine ZOSTER VACCINES (1 of 2) [facility] Start: 2000 Screening for malignant neoplasm of colon [facility] Start: 10-31-1995 COLOGUARD (FIT-DNA) COLOGUARD (FIT-DNA) [facility] Start: 10-31-1995 Colonoscopy COLONOSCOPY [facility] Start: 10-31-1995 COLORECTAL CANCER SCREENING COLORECTAL CANCER SCREENING [facility] Start: 10-31-[address] COLONOGRAPHY [facility] Start: 10-31-1995 FECAL OCCULT BLOOD FECAL OCCULT BLOOD [facility] Start: 10-31-1995 SIGMOIDOSCOPY SIGMOIDOSCOPY [facility] Start: 1985 Lipid 1996 panel - Serum or Plasma Lipid Screening [facility] Start: 1985 LIPID SCREEN LIPID SCREEN [facility] Start: 1969 Urine microalbumin profile [facility] Start: 1968 ANNUAL PCP TEAM CHRONIC DISEASE VISIT ANNUAL PCP TEAM CHRONIC DISEASE VISIT [facility] Start: 1968 Hepatitis C antibody, confirmatory test Hepatitis C Screening [facility] Start: 1968 SPIROMETRY SPIROMETRY [facility] Start: 1966 COVID-19 Vaccine (1 of 2) COVID-19 Vaccine (1 of 2) [facility] Start: 1962 Adolescent depression screening assessment [facility] Start: 1953 History and physical examination, annual for health maintenance Wellness Visit [facility] Start: 1950 ABDOMINAL AORTIC ANEURYSM SCREENING ABDOMINAL AORTIC ANEURYSM SCREENING [facility] Start: 1950 Fall risk assessment Falls Risk Assessment [facility] Start: 1950 Prostate specific antigen measurement PSA Level [facility] Start: 1950 Screening for malignant neoplasm of colon Colorectal Cancer Screening: Colonoscopy [facility] Start: 1950 US scan of abdominal aorta Abdominal Aortic Ultrasound [facility] Start: 1950 End: 1950 Hepatitis C antibody, confirmatory test HEPATITIS C SCREENING [facility] Start: 1950 HEPATITIS C SCREENING HEPATITIS C SCREENING [facility] Start: 1950 Protein mass conc COLONOSCOPY [facility] Start: 1950 Screening colonoscopy COLONOSCOPY [facility] Start: 1950 End: 1950 Tetanus vaccination [facility] End: 05-09-2020 Complete PFT with FeNO Complete PFT with FeNO PFT Routine Asthma, unspecified asthma severity, unspecified whether complicated, unspecified whether persistent 1 Occurrences starting 05/09/2019 until 05/09/2020 [facility] Immunizations Immunization Date Immunization Notes Care Provider Arminda spicer 02-02-2023 influenza (HD-IIV4) vaccine, age 65+ yr, high dose, quadrivalent, PF (FLUZONE HIGH-DOSE) Shobha Macedo MD Work Phone: [facility] 02-13-2022 influenza, high dose seasonal, preservative-free Barbara Sterling PA-C Work Phone: [facility] Work Phone: 07-31-2021 COVID-19 original vaccine, full dose, monovalent (MODERNA) Barbara Sterling PA-C Work Phone: [facility] Work Phone: 01-13-2021 zoster vaccine recombinant Shobha Macedo MD Work Phone: [facility] Work Phone: 06-28-2020 COVID-19 vaccine, fu ll dose (MODERNA) Shobha Macedo MD Work Phone: [facility] Work Phone: 05-30-2020 COVID-19 vaccine, fu ll dose (MODERNA) Shobha Macedo MD Work Phone: [facility] Work Phone: 04-29-2018 pneumococcal polysaccharide vaccine, 23 valent Shobha Macedo MD Work Phone: [facility] Work Phone: 03-23-2016 pneumococcal conjuga te vaccine, 13 valent Shobha Macedo MD Work Phone: [facility] Work Phone: 02-14-2015 zoster vaccine, live Wyatt Macedo MD Work Phone: [facility] Work Phone: Payers Date Payer Category Payer Unknown MMO MMO MEDICARE SUPPLEMENT [id number] 2019-Present [phone] [address] [place] [address] Indemnity [id number] 2015 Medicare [id number] 2015 Medicare MEDICARE MEDICAR E PART A & B xxxxxxxxxxx 2015-Present [place] xxxxxxxxxxx [id number] 2015 Medicare [id number] 2015 Medicare [id number] 2015 Medicare MEDICARE MEDICAR E A AND B [id number] 2015-Present [phone] [address] [address] [place] [address] Medicare [id number] 2015 Unknown MMO MEDICAL [place] TRADITIONAL xxxxxxxxxxxx 2015-Present [id number] 2015 Unknown [id number] 2015 Unknown [id number] 1950 Unknown [id number] 1950 Unknown [id number] 1950 Unknown [id number] 1950 Unknown [id number] 1950 Unknown [id number] 1950 Unknown [id number] 1950 Unknown [id number] 1950 Unknown [id number] Social History Date Type Detail Facility Start: 03-24-2017 Tobacco smoking stat [facility] Unknown if ever smoked [facility] Work Phone: Start: 1950 Sex Assigned At Not on file [facility] Work Phone: Start: 09-30-2017 End: 01-23-2022 Tobacco smoking status NHIS Former smoker [facility] Work Phone: End: 04-19-1985 History of tobacco use Current smoker [facility] End: 04-19-1985 History of tobacco use Cigarette Smoker [facility] Start: 09-30-2017 End: 03-25-2020 Cigarettes smoked current (pack per day) - Reported [facility] Start: 09-29-2017 Tobacco Comment < 20 pp year [facility] Start: 09-29-2017 Alcohol Comment Rarely [facility] Start: 03-01-2019 End: 02-02-2023 Alcohol intake Current drinker of alcohol (finding) [facility] Start: 01-02-2020 End: 01-23-2022 Tobacco use and exposure Never used [facility] Start: 07-14-2021 End: 02-09-2022 Exposure to SARS-CoV-2 (event) Not sure [facility] Start: 03-25-2020 End: 02-02-2023 Tobacco use panel [facility] National Score (1-10 0), lower number is lower risk Not on file [facility] Clinical Notes 07-24-2021 to 03-25-2023 Telephone Encounter - Victorina Perez LPN - 03/25/2023 10:08 AM ESTTelephone Encounter - Jessica Frazier RN - 03/23/2023 3:07 PM ESTTelephone Encounter - Jessica Frazier RN - 03/23/2023 3:07 PM EST Note Date & Type Note Facility 03-25-2023 Miscellaneous Notes Patient called. Verified name and date of . Patient woild like to take along with prednisone please. Victorina Perez LPN documented in this encounter [facility] 03-23-2023 Miscellaneous Notes Patient notified that script was sent. Jessica Frazier RN Images from the original note were not included. Shobha Macedo MD You 50 minutes ago (2:14 PM) Sent in script Patient called back also asking if it was possible to have a script of prednisone to have filled before he travels out of the country in [place]. Jessica Frazier RN Patient called in asking for Prednisone. Reports wheezing, cough, and flu like symptoms starting 2 days ago. Patient states he has not been tested for covid or flu at this time. Requesting it be sent to [facility] in [place]. Jessica Frazier RN documented in this encounter [facility] 02-02-2023 Note HNO ID: [id number] Author: Shobha Macedo MD Service: ? Author Type: Physician Type: Progress Notes Filed: 02/02/2023 5:06 PM Note Text: . Respiratory [place] Note Patient name: Tj Whipple PCP: Xuan Hicks MD CC: Follow-up asthma HPI: Tj Whipple 72 year old male former remote minimal smoker with PMH significant for cough asthma, CAD, HLD. 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 Currently doing well. But, tends to have more trouble during winter months. Uses ICS as needed. No current need for albuterol or recent need for oral steroids. Denies cough, SOB, chest pain, wheezing. No recent URI or other medical issues. 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 fluticasone furoate (ARNUITY ELLIPTA) 200 mcg/actuation inhaler Inhale 1 Puff as instructed once daily. (Patient taking differently: Inhale 1 Puff as instructed once daily. Using during cold weather months.) albuterol HFA (PROVENTIL HFA, VENTOLIN HFA) 90 mcg/actuation inhaler Inhale 2 Puffs as instructed. sildenafil (REVATIO) 20 mg tablet Take 20 mg by mouth. 2x PRN tamsulosin ER (FLOMAX) 0.4 mg Take 0.4 mg by mouth once daily. zolpidem (AMBIEN) 10 mg Take by mouth at bedtime as needed. Uses 5mg as needed at bedtime. atorvastatin calcium(LIPITOR 40 MG TAB) Take one(1) tablet daily. aspirin(ECOTRIN LOW STRENGTH 81 MG TAB) Take one(1) tablet daily. Social History Tobacco Use Smoking status: Former Packs/day: 1.00 Years: 5.00 Additional pack years: 0.00 Total pack years: 5.00 Types: Cigarettes Quit date: 1985 Years since quittin.8 Smokeless tobacco: Never Vaping Use Vaping Use: Never used Substance Use Topics Alcohol use: Yes Comment: Occ FAMILY HISTORY Problem Relation Age of Onset Hypertension Mother Asthma Father Emphysema Father PAST SURGICAL HISTORY Procedure Laterality Date BACK SURGERY HX N/A 1995 REMOVAL GALLBLADDER 1975 SHOULDER SURGERY HX Right 2009 TONSILLECTOMY AND ADENOIDECTOMY PMH, Social history, family history and surgical history reviewed and updated in EMR REVIEW OF SYSTEMS: CONSTITUTIONAL: No fevers, chills, nightsweats, unintended weight loss HEENT: Denies nasal congestion/sinus symptoms, allergy problems. CARDIOVASCULAR: No chest pain, dyspnea, palpitations, orthopnea, PND, edema. PULM: See HPI INTEGUMENTARY: No new skin changes or rashes PHYSICAL EXAMINATION: Wt 198 lb (89.8kg) BP 128/78, P 73, RR 15, SpO2 96% on RA General Appearance: Age appropriate male, NAD. Skin: Skin color, texture, turgor normal, no suspicious rashes or lesions. Head: Normocephalic, no masses, lesions, tenderness or abnormalities. Eyes: Sclera, conjunctiva normal. Oropharynx: Normal dentition, no oral lesions or thrush. Neck: No JVD, no masses or adenopathy. Lungs: Not labored, normal to percussion, no wheezes or crackles. Heart: RRR, no murmurs. Extremities: No edema, no clubbing. Assessment/Plan: Cough variant asthma -No change in therapy. Continue ICS and albuterol as needed -Flu vaccine today -F/U in one year Shobha Macedo MD [facility] [place] [facility] 02-02-2023 Note HNO ID: [id number] Author: Emerita Archuleta RPFT Service: ? Author Type: Respiratory Therapist Type: Procedures Filed: 02/02/2023 8:55 AM Note Text: RESPIRATORY THERAPY ORAL EXHALED NITRIC OXIDE SERVICE DATE: 02/02/2023 SERVICE TIME: 8:54 AM Oral Exhaled Nitric Oxide measurement: 13.0 (ppb) Normal: Adult 5-20 ppb, pediatric (<12 years) 5-15 ppb High Normal / Increased: Adult 20-35 ppb, pediatric (<12 years) 15-25 ppb Moderately raised exhaled Nitric Oxide may indicate underlying inflammation, but note that: Cold and influenza can raise exhaled Nitric Oxide and some patients have higher baseline exhaled Nitric Oxide levels than others. High: Adult >35 ppb, pediatric (<12 years) >25 ppb Indicative of ongoing eosinophilic inflammation. Symptomatic patient likely to respond to steroids. Possible causes (if already on steroids): Poor compliance, recent allergen exposure, steroid dose inadequate, and steroid resistance. Note that not all patients with high exhaled nitric oxide levels display symptoms. Oral Exhaled Nitric Oxide measurement (Previous Encounters) Test Date Oral Exhaled Nitric Oxide (ppb) 02/02/2023 13.0 NAME: YUNIEL Hernandez PATIENT NAME: Tj Whipple DATE: February 02, 2023 TIME: 8:54 AM [facility] 02-02-2023 Note HNO ID: [id number] Author: Emerita Archuleta RPFT Service: ? Author Type: Respiratory Therapist Type: Progress Notes Filed: 02/02/2023 8:55 AM Note Text: PULM FUNCTION SMARTBLOCK: Provider: Shobha Macedo MD Assisting Tech: Emerita Archuleta RPFT Exhaled Nitric Oxide: 1 [facility] 02-02-2023 History of Presen t illness Narrative Images from the original note were not included. . [facility] [place] Note Patient name: Tj Whipple PCP: Xuan Hicks MD CC: Follow-up asthma HPI: Tj Whipple 72 year old male former remote minimal smoker with PMH significant for cough asthma, CAD, HLD. 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 Currently doing well. But, tends to have more trouble during winter months. Uses ICS as needed. No current need for albuterol or recent need for oral steroids. Denies cough, SOB, chest pain, wheezing. No recent URI or other medical issues. 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 fluticasone furoate (ARNUITY ELLIPTA) 200 mcg/actuation inhaler Inhale 1 Puff as instructed once daily. (Patient taking differently: Inhale 1 Puff as instructed once daily. Using during cold weather months.) albuterol HFA (PROVENTIL HFA, VENTOLIN HFA) 90 mcg/actuation inhaler Inhale 2 Puffs as instructed. sildenafil (REVATIO) 20 mg tablet Take 20 mg by mouth. 2x PRN tamsulosin ER (FLOMAX) 0.4 mg Take 0.4 mg by mouth once daily. zolpidem (AMBIEN) 10 mg Take by mouth at bedtime as needed. Uses 5mg as needed at bedtime. atorvastatin calcium(LIPITOR 40 MG TAB) Take one(1) tablet daily. aspirin(ECOTRIN LOW STRENGTH 81 MG TAB) Take one(1) tablet daily. Social History Tobacco Use Smoking status: Former Packs/day: 1.00 Years: 5.00 Additional pack years: 0.00 Total pack years: 5.00 Types: Cigarettes Quit date: 1985 Years since quittin.8 Smokeless tobacco: Never Vaping Use Vaping Use: Never used Substance Use Topics Alcohol use: Yes Comment: Occ FAMILY HISTORY Problem Relation Age of Onset Hypertension Mother Asthma Father Emphysema Father PAST SURGICAL HISTORY Procedure Laterality Date BACK SURGERY HX N/A 1995 REMOVAL GALLBLADDER 1974 SHOULDER SURGERY HX Right 2009 TONSILLECTOMY & ADENOIDECTOMY <AGE 12 1956 PMH, Social history, family history and surgical history reviewed and updated in EMR REVIEW OF SYSTEMS: CONSTITUTIONAL: No fevers, chills, nightsweats, unintended weight loss HEENT: Denies nasal congestion/sinus symptoms, allergy problems. CARDIOVASCULAR: No chest pain, dyspnea, palpitations, orthopnea, PND, edema. PULM: See HPI INTEGUMENTARY: No new skin changes or rashes PHYSICAL EXAMINATION: Wt 198 lb (89.8kg) BP 128/78, P 73, RR 15, SpO2 96% on RA General Appearance: Age appropriate male, NAD. Skin: Skin color, texture, turgor normal, no suspicious rashes or lesions. Head: Normocephalic, no masses, lesions, tenderness or abnormalities. Eyes: Sclera, conjunctiva normal. Oropharynx: Normal dentition, no oral lesions or thrush. Neck: No JVD, no masses or adenopathy. Lungs: Not labored, normal to percussion, no wheezes or crackles. Heart: RRR, no murmurs. Extremities: No edema, no clubbing. Assessment/Plan: Cough variant asthma -No change in therapy. Continue ICS and albuterol as needed -Flu vaccine today -F/U in one year Shobha Macedo MD [facility] [place] documented in this encounter [facility] 07-31-2022 Miscellaneous Notes Patient notified of results and provider's instructions. Patient verbalizes understanding. Advised patient to check with insurance company to see if there is any alteratives medication. Tatianna Vargas LPN Second message left for patient to call. Danielle Chase LPN Spoke with Carlota at [facility]'s pharmacy. Patient has an annual deductible they have not yet met. Arnuity is on the insurance formulary. Unfortunately, an alternative medication may not be covered by insurance and likely will not be any less expensive. Once deductible is met, copay should be significantly less expensive. Left message for patient to call office. Danielle Chase LPN Patient called. Verified name and date of . Patient states his went to pickle sorter the Arnuity and it is $307. He is asking if medication that is more affordable is available? They did not get the Arnuity and he is getting low on the Asthmanex that he received previously through the clinic per patient. Victorina Perez LPN documented in this encounter [facility] 07-24-2022 Note HNO ID: [id number] Author: Shobha Macedo MD Service: ? Author Type: Physician Type: Progress Notes Filed: 07/24/2022 3:42 PM Note Text: . [facility] [place] Note Patient name: Tj Whipple PCP: Xuan Hicks MD CC: Follow-up asthma HPI: Tj Whipple 71 year old male former remote minimal smoker with PMH significant for cough variant asthma, CAD, HLD presenting for routine follow-up. 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 Usually does well with his asthma, mainly cough variant, not requiring chronic inhaled corticosteroids until the winter months. He tends to have more cough and shortness of breath with exposure to cold air. Since his last office visit, he states he has had had three flareups of his asthma. In particular episode was rather severe with wheezing and shortness of breath, enough so that he thought about going to the emergency department. His had noted wheezing at night. He took his steroid inhaler but did not think to use his albuterol inhaler. Treated with oral steroids. Since then he has been regularly taking inhaled corticosteroid. No current problems with cough, dyspnea, wheezing, chest pain. No nocturnal awakenings. DATA: ASTHMA CONTROL TEST Date: 07/24/2022 In the last 4 weeks, how much of the time did your asthma keep you from getting as much done at work or home that you wanted to do? Some of the time (3) In the last 4 weeks, how often have you had shortness of breath? 3 to 6 times per week (3) In the last 4 weeks, how often did your asthma symptoms (wheezing, coughing, shortness of breath, chest tightness or pain) wake you up at night or earlier than usual? 4 or more nights per week (1) In the last 4 weeks, how often have you used your rescue inhaler or nebulizer medication (such as Albuterol, Proventil, Ventolin, Maxair, Xoponex, or Primatene Mist)? Not at all (5) In the last 4 weeks, how would you rate your asthma control? 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 predniSONE (DELTASONE) 10 mg tablet Take 4 daily for three days, then 3 daily for three days, then 2 daily for three days, then one daily for three days. predniSONE (DELTASONE) 10 mg tablet 4 tablets daily for 3 days, 3 tablets daily for 3 days, 2 tablets daily for 3 days, 1 tablets daily for 3 days. albuterol HFA (PROVENTIL HFA, VENTOLIN HFA) 90 mcg/actuation inhaler Inhale 2 Puffs as instructed. sildenafil (REVATIO) 20 mg tablet Take 20 mg by mouth. 2x PRN tamsulosin ER (FLOMAX) 0.4 mg Take 0.4 mg by mouth once daily. zolpidem (AMBIEN) 10 mg Take by mouth at bedtime as needed. atorvastatin calcium(LIPITOR 40 MG TAB) Take one(1) tablet daily. aspirin(ECOTRIN LOW STRENGTH 81 MG TAB) Take one(1) tablet daily. Social History Tobacco Use Smoking status: Former Packs/day: 1.00 Years: 5.00 Pack years: 5.00 Types: Cigarettes Quit date: 1985 Years since quittin.2 Smokeless tobacco: Never Vaping Use Vaping Use: Never used Substance Use Topics Alcohol use: Yes Comment: Occ PMH, Social history, family history and surgical history reviewed and updated in EMR REVIEW OF SYSTEMS: CONSTITUTIONAL: No fevers, chills, nightsweats, unintended weight loss. Some weight gain HEENT: Denies frequent or severe heaches, nasal congestion/sinus symptoms, problematic allergy problems. EYES: No diplopia or blurry vision. CARDIOVASCULAR: No chest pain, dyspnea, palpitations, orthopnea, PND, edema. PULM: See HPI GI: No dysphagia/odynophagia, problematic reflux INTEGUMENTARY: No new skin changes or rashes PHYSICAL EXAMINATION: Wt 94.9 kg, BP 140/86, P 55, RR 17, SpO2 97% General Appearance: Well appearing, alert, in no acute distress, well-hydrated, well nourished.. Skin: Skin color, texture, turgor normal, no suspicious rashes or lesions. Eyes: Sclera, conjunctiva Oropharynx: no oral lesions, no thrush Neck: No JVD, no masses, adenopathy, TM Lungs: Not labored, normal to percussion, no wheezes or crackles Heart: RRR, no murmur Extremities: No edema or clubbing Assessment/Plan: Mild persistent asthma, not complicated -Continue inhaled Steroid. Patient instructed on when to use his albuterol inhaler -Standing prescription for prednisone to use as needed -Exhaled nitric oxide level at next visit Seasonal allergies -Not currently using Flonase n (more content not included)... [facility] 07-24-2022 History of Presen t illness Narrative . [facility] [place] Note Patient name: Tj Whipple PCP: Xuan Hicks MD CC: Follow-up asthma HPI: Tj Whipple 71 year old male former remote minimal smoker with PMH significant for cough variant asthma, CAD, HLD presenting for routine follow-up. 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 Usually does well with his asthma, mainly cough variant, not requiring chronic inhaled corticosteroids until the winter months. He tends to have more cough and shortness of breath with exposure to cold air. Since his last office visit, he states he has had had three flareups of his asthma. In particular episode was rather severe with wheezing and shortness of breath, enough so that he thought about going to the emergency department. His had noted wheezing at night. He took his steroid inhaler but did not think to use his albuterol inhaler. Treated with oral steroids. Since then he has been regularly taking inhaled corticosteroid. No current problems with cough, dyspnea, wheezing, chest pain. No nocturnal awakenings. DATA: ASTHMA CONTROL TEST Date: 07/24/2022 In the last 4 weeks, how much of the time did your asthma keep you from getting as much done at work or home that you wanted to do? Some of the time (3) In the last 4 weeks, how often have you had shortness of breath? 3 to 6 times per week (3) In the last 4 weeks, how often did your asthma symptoms (wheezing, coughing, shortness of breath, chest tightness or pain) wake you up at night or earlier than usual? 4 or more nights per week (1) In the last 4 weeks, how often have you used your rescue inhaler or nebulizer medication (such as Albuterol, Proventil, Ventolin, Maxair, Xoponex, or Primatene Mist)? Not at all (5) In the last 4 weeks, how would you rate your asthma control? 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 predniSONE (DELTASONE) 10 mg tablet Take 4 daily for three days, then 3 daily for three days, then 2 daily for three days, then one daily for three days. predniSONE (DELTASONE) 10 mg tablet 4 tablets daily for 3 days, 3 tablets daily for 3 days, 2 tablets daily for 3 days, 1 tablets daily for 3 days. albuterol HFA (PROVENTIL HFA, VENTOLIN HFA) 90 mcg/actuation inhaler Inhale 2 Puffs as instructed. sildenafil (REVATIO) 20 mg tablet Take 20 mg by mouth. 2x PRN tamsulosin ER (FLOMAX) 0.4 mg Take 0.4 mg by mouth once daily. zolpidem (AMBIEN) 10 mg Take by mouth at bedtime as needed. atorvastatin calcium(LIPITOR 40 MG TAB) Take one(1) tablet daily. aspirin(ECOTRIN LOW STRENGTH 81 MG TAB) Take one(1) tablet daily. Social History Tobacco Use Smoking status: Former Packs/day: 1.00 Years: 5.00 Pack years: 5.00 Types: Cigarettes Quit date: 1985 Years since quittin.2 Smokeless tobacco: Never Vaping Use Vaping Use: Never used Substance Use Topics Alcohol use: Yes Comment: Occ PMH, Social history, family history and surgical history reviewed and updated in EMR REVIEW OF SYSTEMS: CONSTITUTIONAL: No fevers, chills, nightsweats, unintended weight loss. Some weight gain HEENT: Denies frequent or severe heaches, nasal congestion/sinus symptoms, problematic allergy problems. EYES: No diplopia or blurry vision. CARDIOVASCULAR: No chest pain, dyspnea, palpitations, orthopnea, PND, edema. PULM: See HPI GI: No dysphagia/odynophagia, problematic reflux INTEGUMENTARY: No new skin changes or rashes PHYSICAL EXAMINATION: Wt 94.9 kg, BP 140/86, P 55, RR 17, SpO2 97% General Appearance: Well appearing, alert, in no acute distress, well-hydrated, well nourished.. Skin: Skin color, texture, turgor normal, no suspicious rashes or lesions. Eyes: Sclera, conjunctiva Oropharynx: no oral lesions, no thrush Neck: No JVD, no masses, adenopathy, TM Lungs: Not labored, normal to percussion, no wheezes or crackles Heart: RRR, no murmur Extremities: No edema or clubbing Assessment/Plan: Mild persistent asthma, not complicated -Continue inhaled Steroid. Patient instructed on when to use his albuterol inhaler -Standing prescription for prednisone to use as needed -Exhaled nitric oxide level at next visit Seasonal allergies -Not currently using Flonase nasal spray -OTC antihistamines as needed Shobha Macedo MD [facility] [place] documented in this encounter [facility] 05-20-2022 Miscellaneous Notes Patient called in stating cough is getting worse and would like to know if he could get another refill on Tessalon Perles (pended to encounter). Patient stated that prednisone has not worked the last couple times he has taken medication. Patient also stated that if Dr. Macedo has something different for him to take other than tessalon perles for his cough, he would be willing to try it. Patient also wanted to know if he could take his Asmanex BID instead of 1x daily? He would like to take it in the morning and at night. Patient would like a call back at [phone] when prescription is sent to pharmacy and to advise about Asmanex. Thank you! Margaret Macedo LPN documented in this encounter [facility] 04-06-2022 Miscellaneous Notes Detailed message left for patient that RX sent. Danielle Chase LPN Tj called. He was seen on 02/16/2022 for cough and congestion. He was started on Prednisone, Flonase and tessalon perles. He states that he is not getting any better. No fever, but a continuous cough that will not go away. He states that previously, when he has had this, Dr. Macedo had to give him an antibiotic. Tj would like to know if Dr. Macedo would be willing to give him an antibiotic or if he could schedule an appointment to be seen. Lauren Valdovinos RN documented in this encounter [facility] 02-16-2022 History of Presen t illness Narrative Patient: Tj Whipple PCP: Xuan Hicks MD CC: cough HPI: Tj Whipple 71 year old male former remote minimal smoker with PMH significant for cough variant asthma, CAD, and HLD. Recently seen in on 02/09 secondary to cough and chest congestion. Patient was started on Prednisone [address] Macedo. Covid test negative. CXR showed no acute abnormality. Treated with Doxycycline and instructed to complete prednisone course. At this time he is using Arnuity or Asmanex every morning for 1 week. Completed antibiotics and prednisone yesterday. Does not use rescue bronchodilator. Daily cough that might be somewhat improved over the past couple of days. White sputum. 1-2 episodes of hemoptysis that resolved with taking Doxycycline. Wheezing has improved since using inhaler daily. No dyspnea at rest. 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 Increased post nasal drip and rhinorrhea. Sinus congestion. No fevers or chills at this time. No lower extremity edema. 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 benzonatate (TESSALON PERLES) 100 mg capsule Take 1-2 capsules by mouth three times daily as needed. predniSONE (DELTASONE) 10 mg tablet Take 4 tablets by mouth once daily for 3 days, THEN 3 tablets once daily for 3 days, THEN 2 tablets once daily for 3 days, THEN 1 tablet once daily for 3 days. albuterol HFA (PROVENTIL HFA, VENTOLIN HFA) 90 mcg/actuation inhaler Inhale 2 Puffs as instructed. sildenafil (REVATIO) 20 mg tablet Take 20 mg by mouth. 2x PRN fluticasone furoate (ARNUITY ELLIPTA) 200 mcg/actuation inhaler Inhale 1 Puff as instructed once daily. (Patient not taking: Reported on 01/23/2022) tamsulosin ER (FLOMAX) 0.4 mg Take 0.4 mg by mouth once daily. zolpidem (AMBIEN) 10 mg Take by mouth at bedtime as needed. atorvastatin calcium(LIPITOR 40 MG TAB) Take one(1) tablet daily. aspirin(ECOTRIN LOW STRENGTH 81 MG TAB) Take one(1) tablet daily. Social History Tobacco Use Smoking status: Former Packs/day: 1.00 Years: 5.00 Pack years: 5.00 Types: Cigarettes Quit date: 1985 Years since quittin.8 Smokeless tobacco: Never Vaping Use Vaping Use: Never used Substance Use Topics Alcohol use: Yes Comment: Occ Family History Problem Relation Age of Onset Hypertension Mother Asthma Father Emphysema Father PAST SURGICAL HISTORY Procedure Laterality Date BACK SURGERY HX N/A 1995 REMOVAL GALLBLADDER 1975 SHOULDER SURGERY HX Right 2009 TONSILLECTOMY & ADENOIDECTOMY <AGE 12 1956 I reviewed the past medical history, family history, social history and surgical history with changes noted above and updated in EMR. IMMUNIZATIONS Prevnar - 03/23/2016 Pneumovax - 04/29/2018 Influenza - COVID-19 - 03/10/2021, 06/28/2020, 05/30/2020, 07/31/2021 ROS: General: Generally feels cough. Appetite good. Eyes, Ears, nose, throat: See HPI. No hoarseness. Vision stable. Cardiac: No angina, edema, orthopnea. Resp: See HPI. GI: No heartburn, dysphagia. Musculoskeletal: No pain. Neuro: No headache, focal weakness, tremor. Skin: No rash. Otherwise negative. PHYSICAL EXAMINATION: BP 128/80 Pulse 64 Resp 17 Wt 89.4 kg (197 lb) SpO2 96% BMI 28.27 kg/m Gen: No acute distress. Cooperative with examination. ENT: Oral hygeine and dentition good. No sign of oral thrush. Resp: No stridor, accessory respiratory muscle use, supra-sternal or intercostal retractions. No wheezes, crackles. CV: Regular rythm. Heart tones normal. Radial pulses normal. Abd: Non distended. MSK: No kyphoscoliosis. Ext: Warm and well perfused. No clubbing, cyanosis, edema. Skin: No rash, ecchymoses. Neuro: Mental status normal. Affect normal. No tremor. DATA: CXR, 02/09/2022 IMPRESSION: No acute radiographic abnormality. RESULT: Lines, tubes, and devices: None. Lungs and pleura: No consolidation. No lung mass. No pleural effusion. No pneumothorax. Probable calcified granuloma in the right middle lobe. Cardiomediastinal silhouette: Normal cardiomediastinal silhouette. Bones and soft tissues: Unremarkable. ASSESSMENT/PLAN: 1. Mild intermittent asthma with acute exacerbation - ICD9: 493.92, ICD10: J45.21 (primary diagnosis) Will extend Prednisone taper. Patient to use ICS daily. Rinse mouth after each use to help prevent oral thrush. Albuterol HFA inhaler, 2 inhalations 10-15 minutes prior to activities associated with shortness of breath, and as needed for rescue relief of shortness of breath or wheezing, up to 4 times daily. Up to date on annual influenza, pneumococcal and Covid 19 vaccines. - PREDNISONE 10 MG TABLET 2. Cough variant asthma - ICD9: 493.82, ICD10: J45.991 3. Seasonal allergic rhinitis, unspecified trigger - ICD9: 477.9, ICD10: J30.2 Start Flonase 1 spray each nostril. - FLUTICASONE PROPIONATE 50 MCG/ACTUATION NASAL SPRAY,SUSPENSION 4. Post-nasal drip - ICD9: 784.91, ICD10: R09.82 See #3. - FLUTICASONE PROPIONATE 50 MCG/ACTUATION NASAL SPRAY,SUSPENSION Barbara Sterling PA-C documented in this encounter [facility] 02-10-2022 Miscellaneous Notes Patient given results and verbalized understanding of instructions given. Kaitlin Jessica Patient called. Verified name and date of . Patient informed of results but states he isn't sure if that is all that was needed. Aware that according to message results provided. He would like to confirm stating message was vague. Victorina Perez LPN Left message for patient to return call. Kaitlin Jessica Let patient know their covid19/influenza test was negative. documented in this encounter [facility] 02-09-2022 History of Presen t illness Narrative 02/09/2022 Patient presents with: Cough: Chest congestion, SOB x9 days SUBJECTIVE: This is a 71 year old that is here today for Complaint(s) of cough and chest congestion x 9 days. +SOB, intermittent. PCP prescribed prednisone, on the last day and no improving. Cough is mostly non-productive. No COVID test. Overall feeling fatigued. Denies fever, but had chills several days ago. Denies chest pain. 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 albuterol HFA (PROVENTIL HFA, VENTOLIN HFA) 90 mcg/actuation inhaler Inhale 2 Puffs as instructed. sildenafil (REVATIO) 20 mg tablet Take 20 mg by mouth. 2x PRN fluticasone furoate (ARNUITY ELLIPTA) 200 mcg/actuation inhaler Inhale 1 Puff as instructed once daily. (Patient not taking: Reported on 01/23/2022) tamsulosin ER (FLOMAX) 0.4 mg Take 0.4 mg by mouth once daily. zolpidem (AMBIEN) 10 mg Take by mouth at bedtime as needed. atorvastatin calcium(LIPITOR 40 MG TAB) Take one(1) tablet daily. aspirin(ECOTRIN LOW STRENGTH 81 MG TAB) Take one(1) tablet daily. No current facility-administered medications for this visit. SOCIAL HISTORY Social History Tobacco Use Smoking status: Former Packs/day: 1.00 Years: 5.00 Pack years: 5.00 Types: Cigarettes Quit date: 1985 Years since quittin.8 Smokeless tobacco: Never Vaping Use Vaping Use: Never used Substance Use Topics Alcohol use: Yes Comment: Occ REVIEW OF SYSTEMS See HPI OBJECTIVE: BP 140/82 Pulse 84 Temp 36.8 C (98.2 F) Resp 20 Wt 89.5 kg (197 lb 6.4 oz) SpO2 95% BMI 28.32 kg/m APPEARANCE Well appearing, alert, in no acute distress, well-hydrated, well nourished. EYES PERRLA, conjunctiva and sclera normal. EARS External ears normal, canals clear NOSE/SINUS Nares normal. Septum midline. Mucosa normal. No drainage or sinus tenderness. THROAT normal, no erythema NECK Supple, no adenopathy; HEART RRR with normal S1 and S2 LUNG + rhonchi ASSESSMENT/PLAN: 1. Acute cough - ICD9: 786.2, ICD10: R05.1 CXR without obvious consolidate. + calcified granuloma-will review with PCP. - XR CHEST 2V FRONTAL/LAT - COVID WITH FLUA+B, ROUTINE - DOXYCYCLINE HYCLATE 100 MG TABLET - BENZONATATE 100 MG CAPSULE Start doxycycline based on clinical exam Patient has f/u with PCP Wednesday. R/o COVID Reviewed red flags and when to seek care sooner. The patient indicates understanding of these issues and agrees with the plan. Ayanna Koch PA-C 02/10/2022 documented in this encounter [facility] 02-09-2022 Miscellaneous Notes Spoke with patient. Concerned that when lying flat I feel like I am drowning . Speaking in full sentences and able to carry on a conversation with this nurse. Prednisone usually helpful by next day with similar symptoms in the past. I advised patient needs to be evaluated today. He will present to express care to see if CXR indicated for pneumonia vs ER evaluation/effusion, etc. If he cannot ambulate throughout his home without dyspnea or speak in complete sentences, he needs to be seen in the ER and should not drive. He is agreeable to this plan. Danielle Chase LPN Patient calling and states Dr. Macedo gave him Prednisone last week for his respiratory problems and feels it is not helping. He is having difficulty breathing. He is unable to lay down. Feels like he is having fluid in his lungs like he did a few years ago while he was in [place]. Please advise. documented in this encounter [facility] 02-04-2022 Miscellaneous Notes Patient phones requesting refills as follows: Requested Prescriptions Pending Prescriptions Disp Refills predniSONE (DELTASONE) 10 mg tablet 30 tablet 0 Sig: Take 4 tablets by mouth once daily for 3 days, THEN 3 tablets once daily for 3 days, THEN 2 tablets once daily for 3 days, THEN 1 tablet once daily for 3 days. Please review and advise. Danielle Chase LPN documented in this encounter [facility] 01-23-2022 History of Presen t illness Narrative Images from the original note were not included. . [facility] Note Patient name: Tj Whipple PCP: Xuan Hicks MD CC: follow-up asthma HPI: Tj Whipple 71 year old male former remote minimal smoker with cough variant asthma, CAD, HLD who presents for routine follow-up. 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 No evidence of HSP by chest CT. Currently uses ICS as needed. Asthma mainly triggered by exposure to cold air and URI. States he has been doing well. No need for albuterol. No significant SOB, cough, wheezing or chest tightness. No nocturnal awakenings. 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 sildenafil (REVATIO) 20 mg tablet Take 20 mg by mouth. 2x PRN tamsulosin ER (FLOMAX) 0.4 mg Take 0.4 mg by mouth once daily. zolpidem (AMBIEN) 10 mg Take by mouth at bedtime as needed. atorvastatin calcium(LIPITOR 40 MG TAB) Take one(1) tablet daily. aspirin(ECOTRIN LOW STRENGTH 81 MG TAB) Take one(1) tablet daily. fluticasone furoate (ARNUITY ELLIPTA) 200 mcg/actuation inhaler Inhale 1 Puff as instructed once daily. (Patient not taking: Reported on 01/23/2022) predniSONE (DELTASONE) 10 mg tablet Take 4 daily for three days, then 3 daily for three days, then 2 daily for three days, then one daily for three days. docusate sodium(COLACE 100 MG CAP) Take one(1) tablet twice daily. (Patient not taking: Reported on 01/23/2022) Social History Tobacco Use Smoking status: Former Packs/day: 1.00 Years: 5.00 Pack years: 5.00 Types: Cigarettes Quit date: 1985 Years since quittin.7 Smokeless tobacco: Never Vaping Use Vaping Use: Never used Substance Use Topics Alcohol use: Yes Comment: Occ FAMILY HISTORY Problem Relation Age of Onset Hypertension Mother Asthma Father Emphysema Father PAST SURGICAL HISTORY Procedure Laterality Date BACK SURGERY HX N/A 1995 REMOVAL GALLBLADDER 1975 SHOULDER SURGERY HX Right 2009 TONSILLECTOMY & ADENOIDECTOMY <AGE 12 1956 PMH, Social history, family history and surgical history reviewed and updated in EMR REVIEW OF SYSTEMS: CONSTITUTIONAL: No fevers, chills, nightsweats, unintended weight loss HEENT: Denies nasal congestion/sinus symptoms, allergy problems. CARDIOVASCULAR: No chest pain, dyspnea, palpitations, orthopnea, PND, edema. PULM: See HPI. NEURO: No new balance problems, peripheral weakness/paresthesias or numbness of concern. Hand strength and supervisor photocomposition poor. PSY: No concerns regarding depression, anxiety INTEGUMENTARY: No new skin changes or rashes PHYSICAL EXAMINATION: Wt 200 lb (90.7kg), BP 132/82, P 61, RR 17, SpO2 96% General Appearance: Age appropriate male, NAD Skin: Skin color, texture, turgor normal, no suspicious rashes or lesions. Head: Normocephalic, no masses, lesions, tenderness or abnormalities. Eyes: Sclera, conjunctiva normal Oropharynx: No oral lesions, no cobblestoning Neck: No JVD, no masses, adenopathy Lungs: Not labored, normal to percussion, no wheezes, or crackles Heart: RRR, no murmur Extremities: No edema or clubbing Lymph Nodes: No cervical lymphadenopathy and No supraclavicular lymphadenopathy. Assessment/Plan: Mild intermittent asthma, uncomplicated -Continue albuterol as needed. Remain off ICS -RTC 6 months Shobha Macedo MD [facility] documented in this encounter [facility] 07-24-2021 History of Presen t illness Narrative Images from the original note were not included. . [facility] Note Patient name: Tj Whipple PCP: Ash Dos Santos MD CC: cough asthma HPI: Tj Whipple 70 year old male former remote minimal smoker with cough variant asthma, CAD, HLD, presenting for routine follow-up. 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 He does wear a mask. Has most trouble with cold air. Although he has SOB, he has not used his rescue inhaler. No noctural awakenings. No significant coughing spells, sputum production or wheezing. He has not been ill with any recent upper respiratory infection requiring antibiotics or steroids. No emergency department visits or hospitalizations. 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 2x PRN predniSONE (DELTASONE) 10 mg tablet Take 4 daily for three days, then 3 daily for three days, then 2 daily for three days, then one daily for three days. fluticasone furoate (ARNUITY ELLIPTA) 200 mcg/actuation Inhale 1 Puff as instructed once daily. tamsulosin ER (FLOMAX) 0.4 mg Take 0.4 mg by mouth once daily. zolpidem (AMBIEN) 10 mg Take by mouth at bedtime as needed. atorvastatin calcium(LIPITOR 40 MG TAB) Take one(1) tablet daily. docusate sodium(COLACE 100 MG CAP) Take one(1) tablet twice daily. aspirin(ECOTRIN LOW STRENGTH 81 MG TAB) Take one(1) tablet daily. Social History Tobacco Use Smoking status: Former Smoker Packs/day: 1.00 Years: 5.00 Pack years: 5.00 Types: Cigarettes Quit date: 1985 Years since quittin.2 Smokeless tobacco: Never Used Vaping Use Vaping Use: Never used Substance Use Topics Alcohol use: Yes Comment: Occ Drug use: Not on file PMH, Social history, family history and surgical history reviewed and updated in EMR REVIEW OF SYSTEMS: CONSTITUTIONAL: No fevers, chills, nightsweats, unintended weight loss HEENT: Denies nasal congestion/sinus symptoms, allergy problems. CARDIOVASCULAR: No chest pain, palpitations, edema. PULM: See HPI GI: No dysphagia/odynophagia, problematic reflux INTEGUMENTARY: No new skin changes or rashes PHYSICAL EXAMINATION: BP 139/77 Pulse 83 Resp 14 Ht 5' 10 (1.78m) Wt 201 lb (91.2kg) SpO2 95% BMI 28.84 kg/(m^2). General Appearance: Age appropriate male in NAD Skin: Skin color, texture, turgor normal, no suspicious rashes or lesions. Head: Normocephalic, no masses, lesions, tenderness or abnormalities Neck: No JVD, or masses, or adenopathy Eyes: Sclera, conjunctiva normal Oropharynx: No oral lesion or thrush Lungs: Not labored, normal to percussion, no wheezes or crackles Heart:RRR, no murmur Extremities: No edema, no clubbing Assessment/Plan: 1. Cough variant asthma -Clinically stable -Continue ICS during allergy season. 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 -RTC 6 months or sooner with problems Shobha Macedo MD [facility] documented in this encounter [facility] documented in this encounter [facility] note* Diagnosis Mild intermittent asthma without complication- Primary Unspecified asthma documented in this encounter [facility] note* Diagnosis Acute cough- Primary documented in this encounter [facility] note* Diagnosis Mild intermittent asthma with acute exacerbation- Primary Unspecified asthma, with exacerbation Cough variant asthma Seasonal allergic rhinitis, unspecified trigger Post-nasal drip Postnasal drip documented in this encounter [facility] note* Diagnosis Acute cough documented in this encounter [facility] note* Diagnosis Mild persistent asthma without complication- Primary Unspecified asthma Seasonal allergic rhinitis, unspecified trigger documented in this encounter [facility] note* Diagnosis Cough variant asthma- Primary Need for influenza vaccination Need for prophylactic vaccination and inoculation against influenza [facility] Outpatient Procedure (Routine) - Authorized Specialty Diagnoses / Procedures Referred By Belen brito Referred To [facility] Diagnoses Mild persistent asthma without complication Procedures NITRIC OXIDE, EXHALED NITRIC OXIDE GAS DETERMINATION Shobha Macedo MD [address] [place] [address] [facility] [address] [place] [id number] Referral ID Status Reason Start Date Expiration Date Visits Requested Visits Authorized [id number] Authorized Auto-Generat ed Referral 07/24/2022 08/23/2023 1 1 [facility] Assessments Diagnosis Mild intermittent asthma wit hout complication - Primary Diagnosis Mild intermittent asthma without complication- Primary Diagnosis Mild asthma with exacerbation, unspecified whether persistent- Primary Acute bronchitis, unspecified organism Cough SOB (shortness of breath) Shortness of breath Diagnosis Cough Diagnosis Lung nodule Other diseases of lung, not elsewhere classified Diagnosis Mild intermittent asthma without complication- Primary Diagnosis Moderate persistent asthma with exacerbation Unspecified asthma, with exacerbation Asthma, unspecified asthma severity, unspecified whether complicated, unspecified whether persistent Diagnosis Asthma, unspecified asthma severity, unspecified whether complicated, unspecified whether persistent Diagnosis Mild intermittent asthma with acute exacerbation Sinus disease Summary Purpose Family History No Family History Records FoundNo Family History Records FoundNo Family History Records FoundNo Family History Records Found Advance Directives No Advanced Directives Records FoundDocuments on File Type Date Recorded 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 Advance Directives and Livin g Will 11/30/2018 6:59 AM Documents on File Type Date Recorded 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 Advance Directives and Livin g Will 12/01/2018 6:59 AM Documents on File Type Date Recorded 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 HPI: Tj Whipple is a 67 y.o. male former remote less than [id number] smoker with a history of recurrent bronchitis and persistent cough. His symptomatology was most consistent with asthma although he had normal spirometry when he was first evaluated in 2010. His symptoms cleared with inhaled corticosteroids. Initially he was on chronic inhaled therapy but more recently only uses his inhaled corticosteroid for about a week if he has chronic symptoms associated with upper respiratory infections. He states he has been doing well. 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 He has not had any coughing, wheezing, chest pain. Outpatient Prescriptions as of 04/27/2018 Medication Sig aspirin 81 MG EC tablet Take 81 mg by mouth daily. mometasone (ASMANEX) 220 mcg (14 doses) inhaler Inhale 2 (two) puffs daily. tamsulosin (FLOMAX) 0.4 mg capsule Take 0.4 mg by mouth daily. PMH, surgical history, family history, social history: Reviewed, unchanged except where noted. Review of Systems - History obtained from the patient General ROS: negative ENT ROS: negative for - headaches, nasal discharge or sinus pain Respiratory ROS: no cough, shortness of breath, or wheezing Cardiovascular ROS: no chest pain or dyspnea on exertion BP 132/80 Pulse 74 Resp 16 Wt 90.7 kg (200 lb) SpO2 94% General appearance: alert, appears stated age, cooperative and no distress Head: Normocephalic, without obvious abnormality Eyes: negative findings: lids and lashes normal, conjunctivae and sclerae normal and corneas clear Throat: lips, mucosa, and tongue normal; teeth and gums normal Neck: no adenopathy, no JVD, supple, symmetrical, trachea midline and thyroid not enlarged, symmetric, no tenderness/mass/nodules Lungs: clear to auscultation bilaterally and normal percussion bilaterally Heart: regular rate and rhythm, S1, S2 normal, no murmur, click, rub or gallop Extremities: extremities normal, atraumatic, no cyanosis or edema ASSESMENT/PLAN: Asthma, likely cough variant Symptoms currently controlled. He was given samples of Asmanex to have available if needed. I will see him back in 6 months or sooner if he develops problems. in this encounter* Shobha Macedo MD - 08/24/2018 2:22 PM EDT HPI: Tj Whipple is a 67 y.o. male with a history of recurrent bronchitis and persistent cough.He was first evaluated in 2010. Although his pulmonary function tests were normal he had improvement in his symptoms with inhaled corticosteroids. Over the years he is only required inhaled corticosteroids when he develops upper respiratory infection. He called the office several days ago with concerns regarding upper chest tightness, shortness of breath with activity and throat clearing. Today he states he has been ill for approximately 4 weeks. Initially he had a cough productive of discolored sputum with some blood tinge. He did not have any fevers or chest pain at the time. He was evaluated in an urgent care center. Apparently a chest x-ray was normal and he was prescribed azithromycin.His sputum character is back to clear but he has persistent shortness of breath and throat clearingdespite use of his steroid inhaler. Current Outpatient Medications Medication Sig Dispense Refill aspirin 81 MG EC tablet Take 81 mg by mouth daily. mometasone (ASMANEX) 220 mcg (14 doses) inhaler Inhale 2 (two) puffs daily. 2 Inhaler 0 tamsulosin (FLOMAX) 0.4 mg capsule Take 0.4 mg by mouth daily. predniSONE (DELTASONE) 10 MG tablet 3 TABLETS DAILY FOR 5 DAYS, 2 TABLETS DAILY FOR 5 DAYS, 1 TABLET DAILY FOR 5 DAYS. TAKE WITH FOOD . 30 tablet 0 No current facility-administered medications for this visit. PMH, surgical history, family history, social history: Reviewed, unchanged except where noted. Review of Systems - History obtained from the patient General ROS: negative for - chills or fever ENT ROS: negative for - nasal congestion or sinus pain Respiratory ROS: positive for - cough, shortness of breath and sputum changes Cardiovascular ROS: no chest pain or dyspnea on exertion BP 110/68 Pulse 66 Resp 16 Wt 90.7 kg (200 lb) SpO2 97% General appearance: alert, appears stated age, cooperative and no distress Head: Normocephalic, without obvious abnormality Eyes: negative findings: lids and lashes normal, conjunctivae and sclerae normal and corneas clear Throat: lips, mucosa, and tongue normal; teeth and gums normal Neck: no adenopathy, no JVD, supple, symmetrical, trachea midline and thyroid not enlarged, symmetric, no tenderness/mass/nodules Lungs: clear to auscultation bilaterally and normal percussion bilaterally Heart: regular rate and rhythm, S1, S2 normal, no murmur, click, rub or gallop ASSESMENT/PLAN: Asthma exacerbation Acute bronchitis He does not need further antibiotic therapy at this time. I changed his inhaled therapy to Dulera. I gave him samples. I gave him a course of prednisone. He was instructed to contact me if he had no improvement in his symptoms. documented in this encounter* Shobha Macedo MD - 03/01/2019 1:24 PM EST CC: follow-up asthma HPI: Tj Whipple is a 68 y.o. male with a history of recurrent bronchitis and prolonged cough. He was first evaluated in 2010. His pulmonary function tests were normal at that time but he had improvement in his symptoms with inhaled corticosteroids. Over the years he will use inhaled corticosteroid when he is ill with an upper respiratory infection and this lessens the duration of his symptoms. Over the summer, he had a bout of bronchitis with prolonged symptoms despite treatment with oral prednisone and antibiotics. A chest x-ray showed pulmonary nodule and subsequent chest CT showed calcified granuloma and no major abnormalities. When I called the patient to inform him of his results, he stated that he was still having a deep productive cough but his sputum color was clear. He had not responded to azithromycin, a course of prednisone and change in his inhaled therapy to Dulera. Hewas back to using his Asmanex and I sent in a prescription for 3-week course of doxycycline. His symptoms finally resolved. Today he presents for routine follow-up. He denies any significant respiratory symptoms. He has no significant cough, shortness of breath or wheezing. He is very sensitive to his environments and exposure to fumes. 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 No other new major medical problems. Current Outpatient Medications Medication Sig Dispense Refill aspirin 81 MG EC tablet Take 81 mg by mouth daily. mometasone (ASMANEX) 220 mcg (14 doses) inhaler Inhale 2 (two) puffs daily. 2 Inhaler 0 tamsulosin (FLOMAX) 0.4 mg capsule Take 0.4 mg by mouth daily. No current facility-administered medications for this visit. PMH, surgical history, family history, social history: Reviewed, unchanged except where noted. Review of Systems - History obtained from the patient General ROS: negative for - chills, fatigue, fever or weight loss Ophthalmic ROS: negative for - eye pain or itchy eyes ENT ROS: negative for - nasal congestion, nasal discharge or sore throat Respiratory ROS: no cough, shortness of breath, or wheezing Cardiovascular ROS: no chest pain or dyspnea on exertion BP 130/62 Pulse 67 Resp 14 Wt 93 kg (205 lb) SpO2 98% General appearance: alert, appears stated age, cooperative and no distress Head: Normocephalic, without obvious abnormality Eyes: negative findings: lids and lashes normal, conjunctivae and sclerae normal and corneas clear Throat: lips, mucosa, and tongue normal; teeth and gums normal Neck: no adenopathy, no JVD, supple, symmetrical, trachea midline and thyroid not enlarged, symmetric, no tenderness/mass/nodules Lungs: clear to auscultation bilaterally, normal percussion bilaterally and not labored Heart: regular rate and rhythm, S1, S2 normal, no murmur, click, rub or gallop Extremities: extremities normal, atraumatic, no cyanosis or edema Skin: Skin color, texture, turgor normal. No rashes or lesions ASSESMENT/PLAN: Asthma I gave him samples of Asmanex Twisthaler. He will use his inhaler only when he is ill with upper respiratory infection. [place] see if a change of weather helps his lung disease. I will see him back in 6 months. documented in this encounter* Shobha Macedo MD - 05/09/2019 11:30 AM EST CC: asthma exacerbation HPI: Tj Whipple is a 68 y.o. male former remote minimal smoker with a history of recurrent bronchitis and chronic cough who was first evaluated in 2010. At that time his pulmonary function testswere normal and his symptoms improved with inhaled corticosteroids. Over the years he has had recurrent symptoms related to upper respiratory infections. This past summer he had a significant protracted course of shortness of breath and cough despite antibiotics and prednisone. I ordered a chest x-ray which showed a lung nodule and subsequent chest CT showed calcified granuloma and no other significant abnormalities. His symptoms eventually resolved with a prolonged course of doxycycline and prednisone and change in inhaled therapy to Dulera from Asmanex. More recently he developed a bout of bronchitis around the holidays. He had typical upper respiratory infectious symptoms with sinus congestion and cough with chest congestion. He has been wheezing but has not had significant sputum production. He went on to develop rather severe shortness of breath. He was seen by his family physicianand apparently had office spirometry which showed significant obstruction. The patient states that he was told his lung function was 20%. He was treated with doxycycline, prednisone and albuterol. Hehas been feeling somewhat better but he still has shortness of breath. He has not had any fevers orchills. He denies any chest pain. He has been using his albuterol regularly which helps but does not completely resolve his symptoms. Unfortunately, he is planning on leaving on a cruise for a month.He would like to be in better condition prior to his departure on the of this month. His othermedical problems include coronary artery disease and sleep apnea. He has not had any recent issues. CT CHEST WITHOUT CONTRAST: 12/01/2018. HISTORY: ORDERING SYSTEM PROVIDED HISTORY: lung nodule, ORDERING SYSTEM PROVIDED DIAGNOSIS CODES: R91.1 Lung nodule COMPARISON: PA and lateral chest 11/30/2018. FINDINGS: Images on lung windows demonstrate there is a small nodule in the right upper lobe periphery, image13 sequence 3 measures 3.2 mm without calcifications. The nodule on the chest x-ray is compatible with a calcified granuloma in the right middle lobe. There are no other nodular densities. There is additional calcified granuloma further inferiorly in the right upper lobe. There is an additional calcified granuloma in the lateral aspect of the right middle lobe as well. The visualized thyroid, great vessels for a noncontrast CT demonstrate no gross abnormalities except for mild atherosclerotic changes. No significant axillary, hilar or mediastinal adenopathy. The pericardium demonstrates mild thickening anteriorly versus minimal pericardial effusion with [id number] coronary artery calcifications. There are a few calcified lymph nodes in the right hilum. CT images through upper abdomen demonstrates previous cholecystectomy. The visualized spleen, pancreas, liver, adrenal glands appear normal. There is a nonobstructing 3 mm calculus in the midpole of the right kidney. IMPRESSION: 1. The nodule in question on the chest x-ray in the right middle lobe is compatible with a calcified granuloma. There are few other calcified granulomas in the right upper lobe, right middle lobe. 2. There is a small noncalcified nodule at the right apex measuring 3 mm which could represent a noncalcified granuloma. Nonetheless if clinically desired this could be followed up in [address] 3. No acute process involving lungs otherwise. 4. Previous cholecystectomy. 5. There is a nonobstructing calculus in the midpole of the visualized right kidney. I independently reviewed chest CT images which show old granulomatous disease Current Outpatient Medications Medication Sig Dispense Refill aspirin 81 MG EC tablet Take 81 mg by mouth daily. mometasone (ASMANEX) 220 mcg (14 doses) inhaler Inhale 2 (two) puffs daily. 2 Inhaler 0 tamsulosin (FLOMAX) 0.4 mg capsule Take 0.4 mg by mouth daily. No current facility-administered medications for this visit. PMH, surgical history, family history, social history: Reviewed, unchanged except where noted. Review of Systems - History obtained from the patient General ROS: negative for - chills, fever or night sweats ENT ROS: positive for - nasal congestion Respiratory ROS: positive for - cough, shortness of breath and wheezing negative for - pleuritic pain Cardiovascular ROS: negative for - chest pain, edema or irregular heartbeat Musculoskeletal ROS: negative for - joint pain or muscle pain Dermatological ROS: negative BP 136/72 Pulse 66 Resp 18 Wt 93 kg (205 lb) SpO2 95% General appearance: alert, appears stated age, cooperative and no distress Head: Normocephalic, without obvious abnormality Eyes: negative findings: lids and lashes normal, conjunctivae and sclerae normal and corneas clear Throat: lips, mucosa, and tongue normal; teeth and gums normal Neck: no adenopathy, no JVD, supple, symmetrical, trachea midline and thyroid not enlarged, symmetric, no tenderness/mass/nodules Lungs: normal percussion bilaterally and diffuse expiratory wheezes, not labored Heart: regular rate and rhythm, S1, S2 normal, no murmur, click, rub or gallop Extremities: extremities normal, atraumatic, no cyanosis or edema Lymph nodes: no cervical or supraclavicular nodes ASSESMENT/PLAN: Asthma exacerbation I do not believe he needs further antibiotics at this time. I have ordered a longer course of prednisone and changed his inhaled therapy to Dulera 200/5. He will continue his albuterol as needed. I have ordered a complete pulmonary function tests and FeNO level. With further recommendations for treatment pending the results of this testing. documented in this encounter* Shobha Macedo MD - 06/22/2019 11:30 AM EST CC: follow-up asthma HPI: Tj Whipple is a 68 y.o. male former smoker with history of recurrent bronchitis and chronic cough since 2010. At that time his pulmonary function tests were normal and his symptoms improvedwith inhaled corticosteroids. He has had recurrent symptoms usually related to upper respiratory infections. He had atypical upper respiratory infection over the holidays with prominent sinus congestion and drainage and wheezing. At his last visit, he stated that his primary care physician performed office spirometry which showed significant obstruction. He was given a course of doxycycline and prednisone and placed on Dulera with as needed albuterol. He was on vacation in [place] and called the office with symptoms of increased shortness of breath and coughing. He was treated with another course of doxycycline and prednisone. He feels the best when he was on prednisone. Once he has completed his prednisone course, his symptoms return in about 2 days. His pulmonary function tests did not show any evidence of obstruction and his FeNO level was normal which would speak against eosinophilic airways inflammation. PFT 05/12/19: FVC 4.45 L 100% FEV1 3.31 L 101% FEV1/FVC 74% FEF 25-75% 2.66 L/s 104% TLC 6.88 107% FRC 3.69 L 107% RV 2.34 L 95% DLCO 26.0 113% FeNO 22 ppb Current Outpatient Medications Medication Sig Dispense Refill albuterol 90 mcg/actuation inhaler Inhale 2 puffs every 4 (four) hours as needed for wheezing . aspirin 81 MG EC tablet Take 81 mg by mouth daily. doxycycline hyclate (VIBRAMYCIN) 100 MG capsule Take 1 (one) capsule (100 mg total) by mouth 2 (two) times a day for 10 days . 20 capsule 0 mometasone (ASMANEX) 220 mcg (14 doses) inhaler Inhale 2 (two) puffs daily. 2 Inhaler 0 predniSONE (DELTASONE) 10 MG tablet 3 TABLETS DAILY FOR 5 DAYS, 2 TABLETS DAILY FOR 5 DAYS, 1 TABLET DAILY FOR 5 DAYS. TAKE WITH FOOD . 30 tablet 0 predniSONE (DELTASONE) 20 MG tablet Take two daily for 5 days then one daily for 5 days then 1/2 daily for 10 days . 20 tablet 0 tamsulosin (FLOMAX) 0.4 mg capsule Take 0.4 mg by mouth daily. No current facility-administered medications for this visit. PMH, surgical history, family history, social history: Reviewed, unchanged except where noted. Review of Systems - History obtained from the patient General ROS: negative for - chills, fatigue or fever ENT ROS: positive for - nasal congestion Respiratory ROS: positive for - cough, shortness of breath and wheezing negative for - sputum changes Cardiovascular ROS: no chest pain or dyspnea on exertion Dermatological ROS: negative BP 127/75 Pulse 73 Resp 16 Wt 93 kg (205 lb) SpO2 93% General appearance: alert, appears stated age, cooperative and no distress Head: Normocephalic, without obvious abnormality Eyes: negative findings: lids and lashes normal, conjunctivae and sclerae normal and corneas clear Ears: canals normal, TMs cloudy Throat: lips, mucosa, and tongue normal; teeth and gums normal Neck: no adenopathy, no JVD, supple, symmetrical, trachea midline and thyroid not enlarged, symmetric, no tenderness/mass/nodules Lungs: normal percussion bilaterally and scattered rhonchi, not labored Heart: regular rate and rhythm, S1, S2 normal, no murmur, click, rub or gallop Extremities: extremities normal, atraumatic, no cyanosis or edema Skin: Skin color, texture, turgor normal. No rashes or lesions Lymph nodes: no cervical or supraclavicular nodes ASSESMENT/PLAN: Asthma exacerbation Sinus congestion I gave him a longer course of prednisone and samples of Asmanex HFA inhaler. He was instructed to obtain [id number] antihistamine. If he has persistent symptoms he will require blood work to look for allergic component and possible formal allergy testing. documented in this encounter* Shobha Macedo MD - 01/02/2020 9:30 AM EDT CC: follow-up asthma HPI: Tj Whipple is a 69 y.o. male former less than [id number] smoker having quit in the [id number] with history of recurrent bronchitis and chronic cough for approximately 10 years. Pulmonary function tests have been previously normal. He had a recent bout of bronchitis in June. Apparently his primary care physician performed in office spirometry which showed significant obstruction. He was treated with antibiotics and prednisone and restarted his Dulera inhaler. He had a repeat exacerbation requiring another course of antibiotics and prednisone. I updated his pulmonary function testswhich showed no evidence of obstruction and his FeNO level was normal. 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 His chest x-ray did not show evidence of hypersensitivity pneumonitis. Although he is feeling better, due to the severity of his problems 6 months ago, he has maintained use of inhaled corticosteroid. He is using Asmanex 220 mcg 1 inhalation a day. Today he states he has been doing well. He has occasional shortness of breath with extreme activity. He denies any wheezing, cough, chest pain. He has no significant nasal congestion, sinuspain or headaches. He has been having a new problem with dizziness . Recent cardiac evaluation wasnormal. Current Outpatient Medications Medication Sig Dispense Refill albuterol 90 mcg/actuation inhaler Inhale 2 puffs every 4 (four) hours as needed for wheezing . aspirin 81 MG EC tablet Take 81 mg by mouth daily. mometasone (ASMANEX) 220 mcg/ actuation (14) inhaler Inhale 1 puff daily . tamsulosin (FLOMAX) 0.4 mg capsule Take 0.4 mg by mouth daily. No current facility-administered medications for this visit. PMH, surgical history, family history, social history: Reviewed, unchanged except where noted. Review of Systems - History obtained from the patient General ROS: negative for - chills, fatigue, fever or weight loss ENT ROS: negative for - headaches, nasal congestion, nasal discharge or sore throat Respiratory ROS: no cough, shortness of breath, or wheezing Cardiovascular ROS: no chest pain or dyspnea on exertion Neurological ROS: no TIA or stroke symptoms positive for - dizziness Dermatological ROS: negative BP 140/76 Pulse (!) 54 Resp 14 Wt 91.6 kg (202 lb) SpO2 97% General appearance: alert, appears stated age, cooperative and no distress Head: Normocephalic, without obvious abnormality Eyes: negative findings: lids and lashes normal, conjunctivae and sclerae normal and corneas clear Throat: lips, mucosa, and tongue normal; teeth and gums normal Neck: no adenopathy, no JVD, supple, symmetrical, trachea midline and thyroid not enlarged, symmetric, no tenderness/mass/nodules Lungs: clear to auscultation bilaterally, normal percussion bilaterally and not labored Heart: regular rate and rhythm, S1, S2 normal, no murmur, click, rub or gallop Extremities: extremities normal, atraumatic, no cyanosis or edema Skin: Skin color, texture, turgor normal. No rashes or lesions ASSESMENT/PLAN: Mild intermittent asthma He will continue on his Asmanex with as needed albuterol for now. RTC 6 months or sooner with problems. documented in this encounter Reason for Referral Status Reason Specialty Diagnoses / Procedures Referred By Contact Referred To Contact Authorized Radiology Diagnoses Lung nodule Procedures CT Chest Without Contrast Shobha Macedo MD [address] [place] [address] Status Reason Specialty Diagnoses / Procedures Referred By Contact Referred To Contact Authorized Pulmonology Diagnoses Asthma, unspecified asthma severity, unspecified whether complicated, unspecified whether persistent Procedures Complete PFT with FeNO Shobha Macedo MD [address] [place] [address] Status Reason Specialty Diagnoses / Procedures Referre d By Contact Referred To Contact Closed Pulmonology Diagnoses Asthma, unspecified asthma severity, unspecified whether complicated, unspecified whether persistent Procedures Complete PFT with FeNO Shobha Macedo MD [address] [place] [address] Additional Source Comments (unrecognized sect ion and content) No Status Records FoundNo Status Records FoundNo Status Records FoundNo Status Records Found INFORMATION SOURCE (unrecogn ized section and content) DATE CREATED AUTHOR AUTHOR'S ORGANIZ ATION 05/13/2019 [facility] DATE CREATED AUTHOR AUTHOR'S ORGANIZ ATION 01/02/2020 [facility] DATE CREATED AUTHOR AUTHOR'S ORGANIZ ATION 03/26/2023 [facility] Reason for Visit (unrecogniz ed section and content) Reason Comments Follow-up illness Status Reason Specialty Diagnoses / Procedures Referred By Contact Referred To Contact Authorized Radiology Diagnoses Lung nodule Procedures CT Chest Without Contrast Shobha Macedo MD [address] [place] [address] Reason Comments Follow-up Mild Asthma Reason Comments Follow-up illness Status Reason Specialty Diagnoses / Procedures Referre d By Contact Referred To Contact Closed Pulmonology Diagnoses Asthma, unspecified asthma severity, unspecified whether complicated, unspecified whether persistent Procedures Complete PFT with FeNO Shobha Macedo MD [address] [place] [address] Reason Comments Follow-up Asthma Reason Comments Follow-up asthma Reason Comments Established Patient cough asthma Reason Comments Established Patient 6 month follow up as thma Reason Onset Date Comments Refill Request 02/04/2022 Reason Comments Patient Update Reason Comments Cough Chest congestion, SO B x9 days Reason Comments Results Reason Comments Established Patient Continued cough Reason Onset Date Comments Refill Request 05/20/2022 Reason Comments Established Patient 6 month follow up as thma Reason Comments Medication Problem Reason Onset Date Comments Established Patient 6 month foll ow up asthma Immunizations 02/02/2023 Flu vaccination Reason Comments Refill Request Aydin Humphreys RRT - 05/12/2019 9:00 AM EST Procedure Notes (unrecognize d section and content) Procedure(s): FENO TEST FENO levels Prior to pulmonary function testing - 21ppb documented in this encounter Source Comments (unrecognize d section and content) In the event this informatio n is protected by the Federal Confidentiality of Alcohol and Drug Abuse Patient Records regulations: The Federal rules restrict any use of the information to criminally investigate or prosecute any alcohol or drug abuse patient.[facility] the event this information is protected by the Federal Confidentiality of Alcohol and Drug Abuse Patient Records regulations: The Federal rules restrict any use of the information to criminally investigate or prosecute any alcohol or drug abuse patient.[facility] the event this information is protected by the Federal Confidentiality of Alcohol and Drug Abuse Patient Records regulations: The Federal rules restrict any use of the information to criminally investigate or prosecute any alcohol or drug abuse patient.[facility] the event this information is protected by the Federal Confidentiality of Alcohol and Drug Abuse Patient Records regulations: The Federal rules restrict any use of the information to criminally investigate or prosecute any alcohol or drug abuse patient.[facility] the event this information is protected by the Federal Confidentiality of Alcohol and Drug Abuse Patient Records regulations: The Federal rules restrict any use of the information to criminally investigate or prosecute any alcohol or drug abuse patient.[facility] the event this information is protected by the Federal Confidentiality of Alcohol and Drug Abuse Patient Records regulations: The Federal rules restrict any use of the information to criminally investigate or prosecute any alcohol or drug abuse patient.[facility] the event this information is protected by the Federal Confidentiality of Alcohol and Drug Abuse Patient Records regulations: The Federal rules restrict any use of the information to criminally investigate or prosecute any alcohol or drug abuse patient.[facility] the event this information is protected by the Federal Confidentiality of Alcohol and Drug Abuse Patient Records regulations: The Federal rules restrict any use of the information to criminally investigate or prosecute any alcohol or drug abuse patient.[facility] the event this information is protected by the Federal Confidentiality of Alcohol and Drug Abuse Patient Records regulations: The Federal rules restrict any use of the information to criminally investigate or prosecute any alcohol or drug abuse patient.[facility] the event this information is protected by the Federal Confidentiality of Alcohol and Drug Abuse Patient Records regulations: The Federal rules restrict any use of the information to criminally investigate or prosecute any alcohol or drug abuse patient.[facility] the event this information is protected by the Federal Confidentiality of Alcohol and Drug Abuse Patient Records regulations: The Federal rules restrict any use of the information to criminally investigate or prosecute any alcohol or drug abuse patient.[facility] the event this information is protected by the Federal Confidentiality of Alcohol and Drug Abuse Patient Records regulations: The Federal rules restrict any use of the information to criminally investigate or prosecute any alcohol or drug abuse patient.[facility] the event this information is protected by the Federal Confidentiality of Alcohol and Drug Abuse Patient Records regulations: The Federal rules restrict any use of the information to criminally investigate or prosecute any alcohol or drug abuse patient.[facility] the event this information is protected by the Federal Confidentiality of Alcohol and Drug Abuse Patient Records regulations: The Federal rules restrict any use of the information to criminally investigate or prosecute any alcohol or drug abuse patient.[facility] the event this information is protected by the Federal Confidentiality of Alcohol and Drug Abuse Patient Records regulations: The Federal rules restrict any use of the information to criminally investigate or prosecute any alcohol or drug abuse patient.[facility] Care Teams (unrecognized sec tion and content) Flight Operations Engineer Relationship Specialty Start Date End Date Xuan Hicks Chi [address] [place] [address] PCP - General Gerontology 07/24/21 Flight Operations Engineer Relationship Specialty Start Date End Date Xuan Hicks Chi [address] [place] [address] PCP - General Gerontology 07/24/21 Flight Operations Engineer Relationship Specialty Start Date End Date Xuan Hicks Chi [address] [place] [address] PCP - General Gerontology 07/24/21 Flight Operations Engineer Relationship Specialty Start Date End Date Xuan Hicks Chi [address] [place] [address] PCP - General Gerontology 07/24/21 Flight Operations Engineer Relationship Specialty Start Date End Date Xuan Hicks Chi [address] [place] [address] PCP - General Gerontology 07/24/21 Flight Operations Engineer Relationship Specialty Start Date End Date Xuan Hicks Chi [address] [place] [address] PCP - General Gerontology 07/24/21 Flight Operations Engineer Relationship Specialty Start Date End Date Xuan Hicks Chi [address] [place] [id number] PCP - General Gerontology 07/24/21 Flight Operations Engineer Relationship Specialty Start Date End Date Xuan Hicks Chi [address] [place], [place] [id number] PCP - General Gerontology 07/24/21 Flight Operations Engineer Relationship Specialty Start Date End Date Xuan Hicks Chi [address] [place], [place] [id number] PCP - General Gerontology 07/24/21 Flight Operations Engineer Relationship Specialty Start Date End Date Xuan Hicks Chi [address] [place], [place] [id number] PCP - General Gerontology 07/24/21 Flight Operations Engineer Relationship Specialty Start Date End Date Xuan Hicks Chi [address] [place], [place] [id number] PCP - General Gerontology 07/24/21 Flight Operations Engineer Relationship Specialty Start Date End Date Xuan Hicks Chi [address] [place], [place] [id number] PCP - General Gerontology 07/24/21 FOR RECORDS PERTAINING TO PATIENTS WHO ARE OR HAVE BEEN ENROLLED IN A CHEMICAL DEPENDENCY/SUBSTANCEABUSE PROGRAM, SOME INFORMATION MAY BE OMITTED. This clinical summary was aggregated from multiple sources. Caution should be exercised in using it in the provision of clinical care. This summary normalizes information from multiple sources, and as a consequence, information in this document may materially change the coding, format and clinical context of patient data. In addition, data may be omitted in some cases. CLINICAL DECISIONS SHOULD BE BASED ON THE PRIMARY CLINICAL RECORDS. [facility] [email or web address] [facility]. provides no warranty or guarantee of the accuracy or completeness of information in this document.
[2023-06-25 12:49] LABS: Absolute Lymphocyte Count 0.89 X10^3/uL (0.83-4.51); Absolute Neutrophil Count 2.7 X10^3/uL (2.0-7.7); Basophil# 0.02 X10^3/uL; Basophil% 0.5 % (0-1); Eosinophil# 0.19 X10^3/uL; Eosinophils% 4.3 % (0-5); Hematocrit 44.8 % (40-54); Hemoglobin 14.6 g/dL (13.0-16.5); Lymphocyte # 0.89 X10^3/ul (0.83-4.51); Lymphocyte % 20.2 % (19-41); Mean Corp Hgb Conc 32.6 g/dL (32-36); Mean Corpuscular Hgb 29.4 pg (27.0-32.0); Mean Corpuscular Volume 90.3 fL (80-94); Monocyte# 0.52 X10^3/uL; Monocyte% 11.8 % (0-10); NRBC Flagged by Analyzer 0 % (0-5); Neutrophil # 2.72 X10^3/uL (2.7-7.7); Neutrophil % 61.6 % (47-70); Platelet Count 153 K/mm3 (150-450); RBC Distribution Width SD 42.9 fl (35.1-43.9); Red Blood Count 4.96 M/mm3 (4.6-6.2); White Blood Count 4.4 K/mm3 (4.4-11.0)
[2023-06-25 13:16] LABS: ALB/GLOB Ratio 1.1 RATIO (0.9-2.4); AST(SGOT) 24 U/L (15-37); Alanine Aminotransfer ALT/SGPT 37 U/L (16-61); Albumin, Serum 3.7 g/dL (3.2-5.0); Alkaline Phosphatase 93 U/L (45-117); Anion Gap 5 (5-15); BUN 19 mg/dL (7-18); BUN/Creat Ratio 19.7 RATIO (10-20); Calcium,Total 8.8 mg/dL (8.5-10.1); Chloride 108 mmol/L (98-107); Cholesterol 207 mg/dL (200); Creatinine, Serum 0.96 mg/dL (0.70-1.30); EST Glomerular Filtration Rate 81 mL/min (>60); Est Glom Filt Rate - Afr Amer 99 mL/min (>60); Globulin 3.5 g/dL (2.2-4.2); Glucose 85 mg/dL (74-106); High Density Lipoprotein 41 mg/dL; Potassium 4.1 mmol/L (3.5-5.1); Protein, Total 7.2 g/dL (6.4-8.2); Sodium Level 139 mmol/L (136-145); Thyroid Stim Hormone (TSH) 1.62 uIU/mL (0.358-3.74); Triglycerides 216 mg/dL; Very Low Density Lipoprotein 43 mg/dL (5-40)
[2023-06-30 15:08] LABS: Lyme IgG P18 Ab Absent (.); Lyme IgG P23 Ab Absent (.); Lyme IgG P28 Ab Absent (.); Lyme IgG P30 Ab Absent (.); Lyme IgG P39 Ab Absent (.); Lyme IgG P41 Ab Present (.); Lyme IgG P45 Ab Absent (.); Lyme IgG P58 Ab Present (.); Lyme IgG P66 Ab Absent (.); Lyme IgG P93 Ab Present (.); Lyme IgG WB Interpretation Negative (.); Lyme IgM P23 Ab Absent (.); Lyme IgM P39 Ab Absent (.); Lyme IgM P41 Ab Absent (.); Lyme IgM WB Interpretation Negative (.)
== END | disposition home or self-care (01) ==
LOC: POLAB3 11:24
PROVIDERS: PCP Family Medicine Geriatric Medicine; Visit Provider Family Medicine Geriatric Medicine
DX: E78.5 Hyperlipidemia, unspecified (principal); R53.83 Other fatigue; A69.20 Lyme disease, unspecified
CPT/HCPCS: 36415; 80053; 80061; 84443; 85025; 86617

== ENCOUNTER → 2023-10-01 | Outpatient (CLI) | payer MEDICARE, SELFPAY ==
--- NOTE | 2023-10-01 10:30 | RAD_ITS ---
INDICATION: Bilateral hip PAIN EXAMINATION/TECHNIQUE: X-RAY - XR Hips Bilateral with Pelvis when performed; 2 Views COMPARISON: FINDINGS: PELVIC BONES: No displaced fracture, destructive or sclerotic lesions. Note that overlapping bowel shadows may however obscure fine detail. Sacroiliac joints are unremarkable. No widening of the pubic symphysis. HIPS: No evidence for acute fracture or dislocation of either hip. There are no lytic destructive changes. Joint spaces are well-maintained however there is mild bilateral acetabular spurring slightly worse on the right . SOFT TISSUES: No soft tissue swelling or gas. RAD/Hips B/L min 2 views w/ Pelvis IMPRESSION: Mild degenerative changes of both hips. No acute fracture or other significant bony pathology. Electronically Signed: Rolf Ayon MD at 19:36 EDT ,
--- NOTE | 2023-10-01 10:30 | RAD_ITS ---
STUDY: X-RAY - RIGHT SHOULDER REASON FOR EXAM: Male, 72 years old. SHOULDER PAIN TECHNIQUE: 4 view(s) of the shoulder. COMPARISON: None. FINDINGS: Mildly narrowed glenohumeral articulation. Normal acromioclavicular joint. Normal acromion. Normal humeral head and visualized proximal humerus. Postop change status post rotator cuff tendon repair The soft tissue structures are unremarkable. Normal visualized pulmonary apex. RAD/Shoulder min 2 Views IMPRESSION: Mild degenerative and postsurgical changes. No acute fracture or other significant bony pathology. Electronically Signed: Rolf Ayon MD at 19:33 EDT ,
--- NOTE | 2023-10-01 10:30 | RAD_ITS ---
STUDY: X-RAY - LEFT SHOULDER REASON FOR EXAM: Male, 72 years old. SHOULDER PAIN TECHNIQUE: 4 view(s) of the shoulder. COMPARISON: None. FINDINGS: Mildly narrowed glenohumeral articulation. Normal acromioclavicular joint. Normal acromion. Normal humeral head and visualized proximal humerus. The soft tissue structures are unremarkable. Normal visualized pulmonary apex. RAD/Shoulder min 2 Views IMPRESSION: Mild degenerative change. No acute fracture or other significant bony pathology. Electronically Signed: Rolf Ayon MD at 19:34 EDT ,
[2023-10-01 11:13] LABS: Absolute Lymphocyte Count 0.98 X10^3/uL (0.83-4.51); Absolute Neutrophil Count 4.5 X10^3/uL (2.0-7.7); Basophil# 0.01 X10^3/uL; Basophil% 0.2 % (0-1); Eosinophil# 0.18 X10^3/uL; Eosinophils% 2.9 % (0-5); Hematocrit 42.9 % (40-54); Hemoglobin 13.4 g/dL (13.0-16.5); Lymphocyte # 0.98 X10^3/ul (0.83-4.51); Lymphocyte % 15.7 % (19-41); Mean Corp Hgb Conc 31.2 g/dL (32-36); Mean Corpuscular Hgb 28.7 pg (27.0-32.0); Mean Corpuscular Volume 91.9 fL (80-94); Mean Platelet Vol. 10.5 fl (6.2-12.0); Monocyte# 0.56 X10^3/uL; Monocyte% 8.9 % (0-10); NRBC Flagged by Analyzer 0 % (0-5); Neutrophil # 4.51 X10^3/uL (2.7-7.7); Platelet Count 141 K/mm3 (150-450); RBC Distribution Width CV 12.8 % (11.6-14.6); RBC Distribution Width SD 42.8 fl (35.1-43.9); Red Blood Count 4.67 M/mm3 (4.6-6.2); White Blood Count 6.3 K/mm3 (4.4-11.0)
[2023-10-01 11:16] LABS: Erythrocyte Sedimentation Rate 10 mm/hr (0-20)
[2023-10-01 11:50] LABS: ALB/GLOB Ratio 1.1 RATIO (0.9-2.4); AST(SGOT) 48 U/L (15-37); Alanine Aminotransfer ALT/SGPT 69 U/L (16-61); Albumin, Serum 3.7 g/dL (3.2-5.0); Alkaline Phosphatase 126 U/L (45-117); Anion Gap 8 (5-15); BUN 22 mg/dL (7-18); BUN/Creat Ratio 27.2 RATIO (10-20); CRP 8.82 mg/L (0.0-3.0); Chloride 105 mmol/L (98-107); Creatinine, Serum 0.81 mg/dL (0.70-1.30); EST Glomerular Filtration Rate 99 mL/min (>60); Est Glom Filt Rate - Afr Amer 120 mL/min (>60); Globulin 3.5 g/dL (2.2-4.2); Glucose 102 mg/dL (74-106); Potassium 3.9 mmol/L (3.5-5.1); Protein, Total 7.2 g/dL (6.4-8.2); Sodium Level 139 mmol/L (136-145)
== END | disposition home or self-care (01) ==
LOC: RAD 10:12
PROVIDERS: PCP Family Medicine Geriatric Medicine; Referring Provider Family Medicine Geriatric Medicine; Visit Provider Family Medicine Geriatric Medicine
DX: M25.511 Pain in right shoulder (principal); I10 Essential (primary) hypertension; M35.3 Polymyalgia rheumatica
CPT/HCPCS: 36415; 73030; 73521; 80053; 85025; 85652; 86140

== ENCOUNTER → 2023-10-14 | Outpatient (CLI) | payer MEDICARE, SELFPAY ==
[2023-10-14 10:44] LABS: Erythrocyte Sedimentation Rate 20 mm/hr (0-20)
[2023-10-14 10:48] LABS: Absolute Lymphocyte Count 0.95 X10^3/uL (0.83-4.51); Basophil# 0.04 X10^3/uL; Basophil% 0.5 % (0-1); Eosinophil# 0.18 X10^3/uL; Eosinophils% 2.3 % (0-5); Hematocrit 44.6 % (40-54); Hemoglobin 14.2 g/dL (13.0-16.5); Lymphocyte # 0.95 X10^3/ul (0.83-4.51); Lymphocyte % 12.1 % (19-41); Mean Corp Hgb Conc 31.8 g/dL (32-36); Mean Corpuscular Hgb 28.6 pg (27.0-32.0); Mean Corpuscular Volume 89.9 fL (80-94); Mean Platelet Vol. 11.8 fl (6.2-12.0); Monocyte# 0.62 X10^3/uL; Monocyte% 7.9 % (0-10); NRBC Flagged by Analyzer 0 % (0-5); Neutrophil # 5.96 X10^3/uL (2.7-7.7); Neutrophil % 76.1 % (47-70); Platelet Count 145 K/mm3 (150-450); RBC Distribution Width CV 13.2 % (11.6-14.6); RBC Distribution Width SD 42.9 fl (35.1-43.9); Red Blood Count 4.96 M/mm3 (4.6-6.2); White Blood Count 7.8 K/mm3 (4.4-11.0)
[2023-10-14 11:29] LABS: ALB/GLOB Ratio 1.1 RATIO (0.9-2.4); AST(SGOT) 20 U/L (15-37); Alanine Aminotransfer ALT/SGPT 92 U/L (16-61); Albumin, Serum 3.7 g/dL (3.2-5.0); Alkaline Phosphatase 141 U/L (45-117); Anion Gap 6 (5-15); BUN 14 mg/dL (7-18); BUN/Creat Ratio 14.8 RATIO (10-20); CRP, High Sensitivity Cardiac 6.92 mg/L; Calcium,Total 9.2 mg/dL (8.5-10.1); Chloride 107 mmol/L (98-107); Creatinine, Serum 0.94 mg/dL (0.70-1.30); EST Glomerular Filtration Rate 83 mL/min (>60); Est Glom Filt Rate - Afr Amer 101 mL/min (>60); Globulin 3.5 g/dL (2.2-4.2); Glucose 103 mg/dL (74-106); Protein, Total 7.2 g/dL (6.4-8.2); Sodium Level 139 mmol/L (136-145)
[2023-10-15 09:09] LABS: HEPATITIS B SURFACE AG Negative (Negative); Hep C Antibodies Non Reactive (Non Reactive); Hepatitis A IgM Antibody Negative (Negative); Hepatitis B Core AB IgM Negative (Negative)
== END | disposition home or self-care (01) ==
PROVIDERS: PCP Family Medicine Geriatric Medicine; Visit Provider Family Medicine Geriatric Medicine
DX: E78.5 Hyperlipidemia, unspecified (principal); B18.0 Chronic viral hepatitis B with delta-agent; W57.XXXA Bitten or stung by nonvenomous insect and other nonvenomous arthropods, initial encounter
CPT/HCPCS: 36415; 80053; 80074; 85025; 85652; 86141

== ENCOUNTER → 2023-10-26 | Outpatient (CLI) | payer MEDICARE, SELFPAY ==
--- NOTE | 2023-10-26 07:04 | US_ITS ---
STUDY: ABDOMINAL ULTRASOUND - RIGHT UPPER QUADRANT REASON FOR VISIT: Male, 72 years old ELEVATED ALT MEASUREMENT TECHNIQUE: Ultrasound evaluation of the right upper quadrant was performed with real-time and static motta-scale imaging. TECHNICAL QUALITY: Adequate. COMPARISON: None. FINDINGS: Liver: The liver measures 16.9 cm. There is normal echogenicity of the liver. The bile ducts are within normal limits. There is hepatic color flow. The direction of portal flow is hepatopetal. There is no demonstrated mass lesion. Gallbladder: The patient is status post cholecystectomy. s. Common Bile Duct (C.B.D.): The common bile duct measures 4 mm. Pancreas: Normal size of the head, body and tail of the pancreas. There is normal echogenicity of the pancreas. There is no demonstrated pancreatic mass or cyst. Right Kidney: Normal size of the right kidney. The right kidney measures 11.2 cm. Normal renal cortex. The right cortex measures 1.6 cm. There is no demonstrated renal mass or cyst. There is no right hydronephrosis. US/Abdomen Limited IMPRESSION: Normal right upper quadrant ultrasound examination after cholecystectomy.. Electronically Signed: Doc Nelson MD at 12:30 EDT ,
== END | disposition home or self-care (01) ==
PROVIDERS: PCP Family Medicine Geriatric Medicine; Referring Provider Family Medicine Geriatric Medicine; Visit Provider Family Medicine Geriatric Medicine
DX: R74.01 Elevation of levels of liver transaminase levels (principal)
CPT/HCPCS: 76705

== ENCOUNTER → 2023-11-03 | Outpatient (CLI) | payer MEDICARE, SELFPAY ==
[2023-11-03 09:42] LABS: Absolute Lymphocyte Count 0.56 X10^3/uL (0.83-4.51); Absolute Neutrophil Count 5.9 X10^3/uL (2.0-7.7); Basophil# 0.01 X10^3/uL; Basophil% 0.1 % (0-1); Eosinophil# 0.03 X10^3/uL; Eosinophils% 0.4 % (0-5); Hematocrit 44.4 % (40-54); Hemoglobin 14.1 g/dL (13.0-16.5); Lymphocyte # 0.56 X10^3/ul (0.83-4.51); Lymphocyte % 8.2 % (19-41); Mean Corp Hgb Conc 31.8 g/dL (32-36); Mean Corpuscular Hgb 28.7 pg (27.0-32.0); Mean Corpuscular Volume 90.2 fL (80-94); Mean Platelet Vol. 11.3 fl (6.2-12.0); Monocyte# 0.25 X10^3/uL; Monocyte% 3.7 % (0-10); NRBC Flagged by Analyzer 0 % (0-5); Neutrophil # 5.86 X10^3/uL (2.7-7.7); Neutrophil % 86.3 % (47-70); POSITIVE DIFFERENTIAL YES; Platelet Count 126 K/mm3 (150-450); RBC Distribution Width CV 13.9 % (11.6-14.6); RBC Distribution Width SD 45.7 fl (35.1-43.9); Red Blood Count 4.92 M/mm3 (4.6-6.2); White Blood Count 6.8 K/mm3 (4.4-11.0)
[2023-11-03 10:27] LABS: Vitamin D,25 Hydroxy 36.4 ng/mL
[2023-11-03 10:47] LABS: ALB/GLOB Ratio 1.2 RATIO (0.9-2.4); AST(SGOT) 33 U/L (15-37); Alanine Aminotransfer ALT/SGPT 95 U/L (16-61); Albumin, Serum 3.8 g/dL (3.2-5.0); Alkaline Phosphatase 90 U/L (45-117); Anion Gap 6 (5-15); BUN 23 mg/dL (7-18); Chloride 108 mmol/L (98-107); Cholesterol 128 mg/dL (200); Creatinine, Serum 0.96 mg/dL (0.70-1.30); EST Glomerular Filtration Rate 82 mL/min (>60); Est Glom Filt Rate - Afr Amer 99 mL/min (>60); Globulin 3.3 g/dL (2.2-4.2); Glucose 118 mg/dL (74-106); High Density Lipoprotein 69 mg/dL; Potassium 4.1 mmol/L (3.5-5.1); Protein, Total 7.1 g/dL (6.4-8.2); Sodium Level 139 mmol/L (136-145); Thyroid Stim Hormone (TSH) 0.71 uIU/mL (0.358-3.74); Triglycerides 55 mg/dL; Very Low Density Lipoprotein 11 mg/dL (5-40)
== END | disposition home or self-care (01) ==
LOC: LAB 09:25
PROVIDERS: PCP Family Medicine Geriatric Medicine; Referring Provider Family Medicine Geriatric Medicine; Visit Provider Family Medicine Geriatric Medicine
DX: I10 Essential (primary) hypertension (principal); E55.9 Vitamin D deficiency, unspecified; E78.5 Hyperlipidemia, unspecified
CPT/HCPCS: 36415; 80053; 80061; 82306; 84443; 85025

== ENCOUNTER → 2024-06-29 | Outpatient (CLI) | payer MEDICARE, SELFPAY ==
[2024-06-29 09:11] LABS: Bacteria 0 SEEN /hpf (None Seen); Squamous Epithelial Cells - UA 0 SEEN /hpf (0-5); White Blood Cells 0 SEEN /hpf (0-5)
[2024-06-29 10:35] LABS: Color, Urine Yellow (Yellow); Glucose, Dipstick Normal (Normal); Ketone-Dipstick 5 mg/dl (Negative); Leukocyte Esterase-Dipstick Negative /ul (Negative); Nitrite-Dipstick Negative (Negative); Occult Blood-Urine Negative /ul (Negative); Protein-Dipstick 15 mg/dl (Negative); Specific Gravity, Urine 1.025 (1.002-1.030); Urine Bilirubin Dipstick Negative (Negative); Urine Clarity Clear (Clear); Urine Urobilinogen Normal (Normal)
[2024-06-29 10:44] LABS: Red Blood Cells-Urine 0 SEEN /hpf (0-5)
[2024-06-29 10:48] LABS: Calcium Oxalate Crystals Ur 2+ /hpf (<or=2+); Mucous, Urine 2+ /hpf (<or=2+)
[2024-06-29 12:15] LABS: ALB/GLOB Ratio 1.6 RATIO (0.9-2.4); AST(SGOT) 34 U/L (<=37); Alanine Aminotransfer ALT/SGPT 45 U/L (<=46); Albumin, Serum 4.1 g/dL (3.4-4.8); Alkaline Phosphatase 106 U/L (40-129); Anion Gap 10 (5-15); BUN 17 mg/dL (4-19); BUN/Creat Ratio 18.2 RATIO (10-20); Calcium,Total 9.2 mg/dL (7.6-11.0); Carbon Dioxide 24.2 mmol/L (21.0-32.0); Chloride 105 mmol/L (98-108); Creatinine, Serum 0.91 mg/dL (0.70-1.20); EST Glomerular Filtration Rate 89 (>60); Globulin 2.5 g/dL (2.2-4.2); Glucose 138 mg/dL (70-99); Protein, Total 6.6 g/dL (5.9-8.4); Sodium Level 139 mmol/L (133-145); Total Bilirubin 0.53 mg/dL (0.00-1.30)
[2024-06-29 12:23] LABS: Rheumatoid Factor < 10.0 IU/mL (<15)
[2024-06-29 12:25] LABS: Absolute Lymphocyte Count 0.87 X10^3/uL (0.83-4.51); Absolute Neutrophil Count 3.5 X10^3/uL (2.0-7.7); Basophil# 0.03 X10^3/uL; Basophil% 0.6 % (0-1); Eosinophil# 0.23 X10^3/uL; Eosinophils% 4.4 % (0-5); Hematocrit 44.6 % (40-54); Hemoglobin 14.5 g/dL (13.0-16.5); Lymphocyte # 0.87 X10^3/ul (0.83-4.51); Lymphocyte % 16.7 % (19-41); Mean Corp Hgb Conc 32.5 g/dL (32-36); Mean Corpuscular Hgb 29.7 pg (27.0-32.0); Mean Corpuscular Volume 91.4 fL (80-94); Monocyte# 0.48 X10^3/uL; Monocyte% 9.2 % (0-10); NRBC Flagged by Analyzer 0 % (0-5); Neutrophil # 3.54 X10^3/uL (2.7-7.7); Neutrophil % 67.9 % (47-70); Platelet Count 141 K/mm3 (150-450); RBC Distribution Width CV 12.8 % (11.6-14.6); Red Blood Count 4.88 M/mm3 (4.6-6.2); White Blood Count 5.2 K/mm3 (4.4-11.0)
[2024-06-30 05:07] LABS: ASO Titer 39.7 IU/mL (0.0-200.0); HEPATITIS B SURFACE AG Negative (Negative); Hep C Antibodies Non Reactive (Non Reactive); Hepatitis A IgM Antibody Negative (Negative); Hepatitis B Core AB IgM Negative (Negative)
[2024-07-03 09:08] LABS: Anti-Nuclear Antibody Test Negative (.)
== END | disposition home or self-care (01) ==
LOC: MTLAB 09:07
PROVIDERS: PCP Family Medicine Geriatric Medicine; Referring Provider Dermatology; Visit Provider Dermatology
DX: M31.0 Hypersensitivity angiitis (principal); D69.2 Other nonthrombocytopenic purpura
CPT/HCPCS: 36415; 80053; 80074; 81001; 85025; 86038; 86060; 86431

== ENCOUNTER → 2024-07-03 | Outpatient (CLI) | payer MEDICARE, SELFPAY ==
[2024-07-03 09:12] LABS: Absolute Neutrophil Count 3.7 X10^3/uL (2.0-7.7); Basophil# 0.02 X10^3/uL; Basophil% 0.4 % (0-1); Eosinophil# 0.23 X10^3/uL; Eosinophils% 4.1 % (0-5); Hematocrit 45.3 % (40-54); Hemoglobin 14.7 g/dL (13.0-16.5); Mean Corp Hgb Conc 32.5 g/dL (32-36); Mean Corpuscular Hgb 29.9 pg (27.0-32.0); Mean Corpuscular Volume 92.3 fL (80-94); Monocyte# 0.51 X10^3/uL; Monocyte% 9.2 % (0-10); NRBC Flagged by Analyzer 0 % (0-5); Neutrophil # 3.74 X10^3/uL (2.7-7.7); Neutrophil % 67.2 % (47-70); Platelet Count 136 K/mm3 (150-450); RBC Distribution Width CV 12.7 % (11.6-14.6); RBC Distribution Width SD 42.9 fl (35.1-43.9); Red Blood Count 4.91 M/mm3 (4.6-6.2); White Blood Count 5.6 K/mm3 (4.4-11.0)
[2024-07-03 13:58] LABS: ALB/GLOB Ratio 1.6 RATIO (0.9-2.4); AST(SGOT) 30 U/L (<=37); Alanine Aminotransfer ALT/SGPT 36 U/L (<=46); Albumin, Serum 4.4 g/dL (3.4-4.8); Alkaline Phosphatase 104 U/L (40-129); Anion Gap 16 (5-15); BUN 18 mg/dL (4-19); BUN/Creat Ratio 16.8 RATIO (10-20); Calcium,Total 9.5 mg/dL (7.6-11.0); Carbon Dioxide 19.3 mmol/L (21.0-32.0); Chloride 104 mmol/L (98-108); Cholesterol 248 mg/dL (<=200); Creatinine, Serum 1.05 mg/dL (0.70-1.20); EST Glomerular Filtration Rate 75 (>60); Globulin 2.8 g/dL (2.2-4.2); Glucose 107 mg/dL (70-99); High Density Lipoprotein 41 mg/dL; Low Density Lipoprotein Calc. 166 mg/dL; Potassium 4.1 mmol/L (3.3-5.1); Protein, Total 7.2 g/dL (5.9-8.4); Sodium Level 140 mmol/L (133-145); Total Bilirubin 0.66 mg/dL (0.00-1.30); Triglycerides 204 mg/dL; Very Low Density Lipoprotein 41 mg/dL (5-40); Vitamin D,25 Hydroxy 27.9 ng/mL (30-100); cholesterol:hdl ratio screen 6.08
== END | disposition home or self-care (01) ==
LOC: POLAB3 08:54
PROVIDERS: PCP Family Medicine Geriatric Medicine; Visit Provider Family Medicine Geriatric Medicine
DX: I10 Essential (primary) hypertension (principal); E78.5 Hyperlipidemia, unspecified; E55.9 Vitamin D deficiency, unspecified
CPT/HCPCS: 36415; 80053; 80061; 82306; 84443; 85025

== ENCOUNTER → 2024-07-13 | Outpatient (CLI) | payer MEDICARE, SELFPAY ==
[2024-07-13 08:46] LABS: Bacteria 0 SEEN /hpf (None Seen); Mucous, Urine 0 SEEN /hpf (<or=2+); Squamous Epithelial Cells - UA 0 SEEN /hpf (0-5); White Blood Cells 0 SEEN /hpf (0-5)
[2024-07-13 09:20] LABS: Color, Urine Yellow (Yellow); Glucose, Dipstick Normal (Normal); Ketone-Dipstick Negative (Negative); Leukocyte Esterase-Dipstick Negative /ul (Negative); Nitrite-Dipstick Negative (Negative); Occult Blood-Urine Negative /ul (Negative); Protein-Dipstick 30 mg/dl (Negative); Urine Bilirubin Dipstick Negative (Negative); Urine Clarity Clear (Clear); Urine Urobilinogen Normal (Normal)
[2024-07-13 14:20] LABS: Red Blood Cells-Urine 0 SEEN /hpf (0-5)
== END | disposition home or self-care (01) ==
LOC: LAB 08:42
PROVIDERS: PCP Family Medicine Geriatric Medicine; Referring Provider Family Medicine Geriatric Medicine; Visit Provider Family Medicine Geriatric Medicine
DX: R80.9 Proteinuria, unspecified (principal)
CPT/HCPCS: 81001

== ENCOUNTER → 2024-08-02 | Outpatient (CLI) | payer MEDICARE, SELFPAY ==
[2024-08-02 08:36] LABS: AST(SGOT) 21 U/L (<=37); Alanine Aminotransfer ALT/SGPT 19 U/L (<=46); Albumin, Serum 4.1 g/dL (3.4-4.8); Alkaline Phosphatase 80 U/L (40-129); Bilirubin, Direct 0.33 mg/dL (0.00-0.30); Globulin 2.4 g/dL (2.2-4.2); Protein, Total 6.6 g/dL (5.9-8.4); Total Bilirubin 0.75 mg/dL (0.00-1.30)
[2024-08-02 09:55] LABS: Cholesterol 129 mg/dL (<=200); High Density Lipoprotein 65 mg/dL; Low Density Lipoprotein Calc. 51 mg/dL; Triglycerides 64 mg/dL; Very Low Density Lipoprotein 13 mg/dL (5-40); cholesterol:hdl ratio screen 1.98
== END | disposition home or self-care (01) ==
LOC: LAB 06:45
PROVIDERS: PCP Family Medicine Geriatric Medicine; Referring Provider Nurse Practitioner Family; Visit Provider Nurse Practitioner Family
DX: E78.00 Pure hypercholesterolemia, unspecified (principal); I10 Essential (primary) hypertension; I25.10 Atherosclerotic heart disease of native coronary artery without angina pectoris
CPT/HCPCS: 36415; 80061; 80076

== ENCOUNTER → 2025-01-01 | Outpatient (CLI) | payer MEDICARE, SELFPAY ==
[2025-01-01 09:29] LABS: Hematocrit 46.1 % (40-54); Hemoglobin 15.0 g/dL (13.0-16.5); Immature Granulocytes Count 0.040 X10^3/uL (0.0-0.0); Mean Corp Hgb Conc 32.5 g/dL (32-36); Mean Corpuscular Volume 91.7 fL (80-94); Mean Platelet Vol. 11.5 fl (6.2-12.0); NRBC Flagged by Analyzer 0 % (0-5); Platelet Count 125 K/mm3 (150-450); RBC Distribution Width CV 12.9 % (11.6-14.6); RBC Distribution Width SD 43.3 fl (35.1-43.9); Red Blood Count 5.03 M/mm3 (4.6-6.2); White Blood Count 6.4 K/mm3 (4.4-11.0)
[2025-01-01 10:56] LABS: AST(SGOT) 24 U/L (<=37); Alanine Aminotransfer ALT/SGPT 25 U/L (<=46); Albumin, Serum 4.4 g/dL (3.4-4.8); Alkaline Phosphatase 92 U/L (40-129); Anion Gap 11 (5-15); BUN 13 mg/dL (4-19); BUN/Creat Ratio 15.2 RATIO (10-20); Calcium,Total 9.5 mg/dL (7.6-11.0); Carbon Dioxide 24.7 mmol/L (21.0-32.0); Chloride 107 mmol/L (98-108); Cholesterol 125 mg/dL (<=200); Globulin 2.7 g/dL (2.2-4.2); Glucose 97 mg/dL (70-99); Low Density Lipoprotein Calc. 54 mg/dL; Potassium 4.3 mmol/L (3.3-5.1); Triglycerides 106 mg/dL; Very Low Density Lipoprotein 21 mg/dL (5-40); Vitamin D,25 Hydroxy 35.1 ng/mL (30-100); cholesterol:hdl ratio screen 2.52
[2025-01-01 16:59] LABS: Xtra Tube Kwok EXTRA TUBE
== END | disposition home or self-care (01) ==
LOC: POLAB3 08:57
PROVIDERS: PCP Family Medicine Geriatric Medicine; Visit Provider Family Medicine Geriatric Medicine
DX: I10 Essential (primary) hypertension (principal); E03.9 Hypothyroidism, unspecified; E55.9 Vitamin D deficiency, unspecified; E78.5 Hyperlipidemia, unspecified
CPT/HCPCS: 36415; 80053; 80061; 82306; 84443; 85025